=== PATIENT | female | born 1950 | race Caucasian/White ===

== ENCOUNTER → 2017-01-27 | Outpatient (CLI) | payer OTHER, MEDICARE, SELFPAY | PROVIDERS: Visit Provider Family Medicine | DX: R30.0 Dysuria (principal) | CPT/HCPCS: 81001; 87086 ==

== ENCOUNTER → 2017-02-01 | Outpatient (POV) | payer OTHER, MEDICARE, SELFPAY | PROVIDERS: Family Provider Family Medicine; PCP Family Medicine; Visit Provider Internal Medicine | DX: C20 Malignant neoplasm of rectum (principal); C78.7 Secondary malignant neoplasm of liver and intrahepatic bile duct | CPT/HCPCS: 99213; 80053; 81001; 85025; 87086; 96413; 96415; 96417; J1642; J9035; J9263; Q0166 ==

== ENCOUNTER → 2017-02-09 08:47 | Outpatient (CLI) | payer OTHER, MEDICARE, SELFPAY ==
--- NOTE | 2017-02-09 | CT_ITS ---
CT chest w con HISTORY: Rectal cancer follow-up, evaluate for metastasis, follow-up pulmonary nodule ITS.REASON: HX OF RECTAL CANCER ON CHEMO-- USED PORT ORDERING PHYSICIAN: Racheal Berumen PATIENT AGE: 66 years TECHNIQUE: Helical acquisition obtained following the bolus administration of 75 mL of Isovue 370 followed by a saline bolus. Axial, sagittal, and coronal reformatted images are generated and reviewed. COMPARISON: 12/14/2016 FINDINGS: Mediport catheter is present from left subclavian approach. No mediastinal or hilar mass or adenopathy. There is minimal prominence of left atrial appendage. Normal heart size. Coronary artery calcifications are present. No obvious pericardial effusion. There are a few scattered fibrotic changes noted. Peripheral opacity in the right upper lobe posterior medially is unchanged at approximately 5 mm. Small 6 mm nodules present in the right lung base posterior medially with central lucency as previously described. A central lucency is somewhat more prominent compared to the previous exam. Minimal atelectatic changes are present in the right lung base posteriorly. There is a 3 mm nodular opacity in the right middle lobe not readily apparent on the previous study but may not be seen due to the slice orientation and the small size. No acute bony anomalies. No effusions or infiltrates. IMPRESSION: 1. No convincing evidence of thoracic metastasis. 2. Scattered small nodular opacities as described above warrant which is not readily apparent on the previous study in the right middle lobe 3 mm but may not been seen due to the small size and slice orientation. Continued follow-up recommended
[2017-02-09 09:05] LABS: Basophils % 0.2 % (0.1-2.0); Eosinophils # 0.1 K/mm3 (0.0-0.4); Eosinophils % 0.9 % (0.1-12.0); Hematocrit 40.1 % (37.0-47.0); Hemoglobin 13.1 g/dL (12.2-16.2); Lymphocytes # 0.6 K/mm3 (0.7-4.5); Lymphocytes % 6.2 K/mm3 (10-50); Mean Corpuscular HGB Conc 32.7 g/dL (31.8-35.4); Mean Corpuscular Hemoglobin 29.6 pg (27.0-31.2); Mean Corpuscular Volume 90.6 fl (81-99); Mean Platelet Volume 7.2 fl (7.4-10.4); Monocytes # 0.5 K/mm3 (0.1-1.0); Monocytes % 4.8 % (1.7-9.3); Neutrophils # 8.9 K/mm3 (1.8-7.8); Neutrophils % 87.9 % (37.0-80.0); Platelet Count 441 K/mm3 (142-424); Red Blood Count 4.43 M/mm3 (4.20-5.40); Red Cell Distribution Width 18.2 % (11.5-17.5); White Blood Count 10.1 K/mm3 (4.8-10.8)
[2017-02-09 09:08] LABS: MANUAL DIFFERENTIAL MANUAL DIFFERENTIAL (MANUAL DIFF)
--- NOTE | 2017-02-09 09:16 | CT_ITS ---
CT abdomen pelvis w con CLINICAL INDICATION: Rectal cancer, hepatic metastasis, follow-up ITS.REASON: RECTAL CANCER ON CHEMO ORDERING PHYSICIAN: Racheal Berumen PATIENT AGE: 66 years COMPARISON: None TECHNIQUE: Axial images obtained with sagittal and coronal reformats. PROCEDURE: Oral Contrast: Redicat IV Contrast: 75 mL's of Isovue-370 . FINDINGS: Hepatic metastasis are once again noted. The largest lesion involving segment 4 and 8 measures 7.2 x 6.1 x 5 cm previously measuring 8.2 x 6.9 x 6.2 cm. Smaller lesion in the posterior aspect of segment 8 measures 2.3 cm present measuring 2.7 cm. Node in lesions are evident. There is mild thickening of the gallbladder. The spleen is unremarkable. Left adrenal gland is enlarged at 2.2 x 1.7 cm not significantly changed. The right adrenal gland and pancreas have an unremarkable appearance. Left lower quadrant diverting colostomy noted. No intestinal obstruction or free air. There has been prior hysterectomy. There is moderate thickening of the perineal tissues which may be slightly more edematous compared to the previous exam. Please correlate with physical exam. There is mild cystocele noted in the pelvic floor. No acute bony anomalies IMPRESSION: 1. Hepatic metastasis which appear slightly smaller. 2. No change left adrenal mass. 3. Postsurgical changes from prior rectal surgery with some mild edema of the peroneal tissue slightly more prominent when compared to the previous exam.
[2017-02-09 09:18] LABS: Alanine Aminotransferase 14 U/L (12-78); Albumin Level 3.2 gm/dL (3.4-5.0); Albumin/Globulin Ratio 0.8 (1.1-1.8); Alkaline Phosphatase 113 U/L (46-116); Anion Gap 9.9 mEq/L (5-15); Aspartate Amino Transferase 12 U/L (15-37); Bilirubin,Total 0.2 mg/dL (0.2-1.0); Blood Urea Nitrogen 25 mg/dL (7-18); Calcium 9.1 mg/dL (8.5-10.1); Carbon Dioxide 29 mmol/L (21.0-32.0); Chloride 101 mmol/L (98-107); Creatinine,Serum 0.69 mg/dL (0.55-1.02); Estimated Glomerular Filt Rate > 60 ml/min (>60); GFR (African American) > 60 ML/MIN (>60); Globulin 3.8 gm/dl (1.3-3.2); Glucose 99 mg/dL (74-106); Sodium 137 mmol/L (136-145)
[2017-02-09 09:24] LABS: Potassium 2.9 mmoL/L (3.5-5.1)
[2017-02-09 09:34] LABS: Lymphocytes % 5 % (10-50); Monocytes % 5 % (2-9); Neutrophils % 86 % (42-76); Platelet Estimate Slight Increase; Total Cells Counted 100
--- NOTE | 2017-02-09 12:45 | HMH.ITSHM ---
METOPROLOL LISINOPRIL AMLODIPINE SYNTHROID TRAZODONE IRON
== END ==
PROVIDERS: Family Provider Family Medicine; PCP Family Medicine; Visit Provider Nurse Practitioner
DX: C20 Malignant neoplasm of rectum (principal); Z03.89 Encounter for observation for other suspected diseases and conditions ruled out
CPT/HCPCS: 36415; 71260; 74177; 80053; 85007; 85025; Q9967

== ENCOUNTER 2017-02-09 10:25 | Outpatient (CLI) | payer OTHER, MEDICARE, SELFPAY ==
--- NOTE | 2017-02-09 15:25 | PC.NURSE ---
6149-contacted dr. nelson concerning pt's labs. potassium level on bmp today was 2.9. pt reports no recent diarrhea other than today after taking contrast for ct. md prescribed potassium tabs 40 meq po to be taken bid. [facility] and informed pt to pick up man and to start taking. pt has appt to f/u on mon with md in clinic.
== END 2017-02-09 11:00 | disposition home or self-care (01) ==
LOC: INF 10:32
PROVIDERS: Visit Provider Internal Medicine
DX: C20 Malignant neoplasm of rectum (principal); Z45.2 Encounter for adjustment and management of vascular access device
CPT/HCPCS: J1642

== ENCOUNTER 2017-02-15 08:15 | Outpatient (CLI) | payer OTHER, MEDICARE, SELFPAY ==
[2017-02-15] VITALS (17 sets, daily range): BP systolic 108–159; BP diastolic 46–82; PULSE 49–58; RESP 18–20; TEMP 36.6; O2SAT 97–98; BMI 20.9; BMI 19.5
[2017-02-15 08:53] LABS: Microscopic, Urine URINE MICROSCOPIC (MICROSCOPIC)
[2017-02-15 09:03] LABS: Appearance,Urine CLEAR (Clear); Bilirubin,Urine Negative (Negative); Blood, Urine 1+ (Negative); Color,Urine STRAW (Yellow); Glucose,Urine (UA) Negative (Negative); Ketones,Urine Negative (Negative); Leukocyte Esterase,Urine TRACE (Negative); Nitrate,Urine Negative (Negative); PH,Urine 5.5 (5.0-8.5); Protein,Urine Negative (Negative); Urobilinogen,Urine 0.2 EU/dl (0.2)
[2017-02-15 09:08] LABS: Potassium 4.9 mmoL/L (3.5-5.1)
[2017-02-15 09:41] LABS: WBC,Urine Occasional #/hpf (0-3)
[2017-02-15 09:42] LABS: Bacteria,Urine Trace /lpf
== END 2017-02-15 15:45 | disposition home or self-care (01) ==
PROVIDERS: Family Provider Family Medicine; Visit Provider Internal Medicine
DX: Z51.11 Encounter for antineoplastic chemotherapy (principal); C20 Malignant neoplasm of rectum; C78.7 Secondary malignant neoplasm of liver and intrahepatic bile duct
CPT/HCPCS: 81001; 84132; 96413; 96415; 96417; J9035; J9263; Q0166

== ENCOUNTER 2017-03-01 08:49 | Outpatient (CLI) | payer OTHER, MEDICARE, SELFPAY ==
[2017-03-01] VITALS (18 sets, daily range): BP systolic 136–165; BP diastolic 62–81; PULSE 48–51; RESP 16–20; TEMP 36.6; O2SAT 98–99; BMI 19.5
[2017-03-01 09:24] LABS: Microscopic, Urine URINE MICROSCOPIC (MICROSCOPIC)
[2017-03-01 09:25] LABS: Basophils # 0.1 K/mm3 (0-0.2); Eosinophils # 0.1 K/mm3 (0.0-0.4); Eosinophils % 2.7 % (0.1-12.0); Hematocrit 40.4 % (37.0-47.0); Hemoglobin 13.1 g/dL (12.2-16.2); Lymphocytes # 0.7 K/mm3 (0.7-4.5); Lymphocytes % 13.5 K/mm3 (10-50); Mean Corpuscular HGB Conc 32.5 g/dL (31.8-35.4); Mean Corpuscular Hemoglobin 29.7 pg (27.0-31.2); Mean Corpuscular Volume 91.5 fl (81-99); Mean Platelet Volume 7.5 fl (7.4-10.4); Monocytes # 0.4 K/mm3 (0.1-1.0); Monocytes % 7.9 % (1.7-9.3); Neutrophils % 74.9 % (37.0-80.0); Platelet Count 298 K/mm3 (142-424); Red Blood Count 4.41 M/mm3 (4.20-5.40); Red Cell Distribution Width 17.1 % (11.5-17.5); White Blood Count 5.3 K/mm3 (4.8-10.8)
[2017-03-01 09:28] LABS: Appearance,Urine CLEAR (Clear); Bilirubin,Urine Negative (Negative); Blood, Urine TRACE-I (Negative); Color,Urine YELLOW (Yellow); Glucose,Urine (UA) Negative (Negative); Ketones,Urine Negative (Negative); Leukocyte Esterase,Urine TRACE (Negative); Nitrate,Urine Negative (Negative); Protein,Urine Negative (Negative); Specific Gravity, Urine 1.015 (1.005-1.030); Urobilinogen,Urine 0.2 EU/dl (0.2)
[2017-03-01 09:37] LABS: Alanine Aminotransferase 24 U/L (12-78); Albumin Level 3.2 gm/dL (3.4-5.0); Albumin/Globulin Ratio 0.8 (1.1-1.8); Alkaline Phosphatase 118 U/L (46-116); Anion Gap 14.1 mEq/L (5-15); Aspartate Amino Transferase 24 U/L (15-37); Bilirubin,Total 0.2 mg/dL (0.2-1.0); Blood Urea Nitrogen 9 mg/dL (7-18); Calcium 8.9 mg/dL (8.5-10.1); Carbon Dioxide 24 mmol/L (21.0-32.0); Chloride 100 mmol/L (98-107); Creatinine Clearance Estimated 42 mL/min (0-300); Creatinine,Serum 0.76 mg/dL (0.55-1.02); Estimated Glomerular Filt Rate 76 ml/min (>60); GFR (African American) 92 ML/MIN (>60); Glucose 111 mg/dL (74-106); Potassium 5.1 mmoL/L (3.5-5.1); Sodium 133 mmol/L (136-145); Total Protein,Serum 7.2 gm/dL (6.4-8.2)
[2017-03-01 09:56] LABS: RBC,Urine Occasional #/hpf (0-3); WBC,Urine Occasional #/hpf (0-3)
[2017-03-01 09:57] LABS: Bacteria,Urine 2+ /lpf; Mucus,Urine 1+ /lpf; Squamous Epithelial Cell,Urine 20-50 #/hpf (0-5)
== END 2017-03-01 15:15 | disposition home or self-care (01) ==
LOC: INF 09:21
PROVIDERS: Family Provider Family Medicine; Visit Provider Internal Medicine
DX: C20 Malignant neoplasm of rectum (principal); Z51.11 Encounter for antineoplastic chemotherapy
CPT/HCPCS: 80053; 81001; 85025; 87086; 96413; 96415; 96417; J9035; J9263; Q0166

== ENCOUNTER 2017-03-13 08:17 | Outpatient (CLI) | payer OTHER, MEDICARE, SELFPAY ==
[2017-03-13] VITALS (21 sets, daily range): BP systolic 138–177; BP diastolic 67–94; PULSE 49–59; RESP 16–18; TEMP 36.5; O2SAT 100; BMI 20.3
[2017-03-13 08:45] LABS: Microscopic, Urine URINE MICROSCOPIC (MICROSCOPIC)
[2017-03-13 08:49] LABS: Basophils % 0.1 % (0.1-2.0); Eosinophils # 0.1 K/mm3 (0.0-0.4); Eosinophils % 0.6 % (0.1-12.0); Hemoglobin 12.9 g/dL (12.2-16.2); Lymphocytes # 0.5 K/mm3 (0.7-4.5); Lymphocytes % 5.2 K/mm3 (10-50); Mean Corpuscular HGB Conc 31.6 g/dL (31.8-35.4); Mean Corpuscular Hemoglobin 29.2 pg (27.0-31.2); Mean Corpuscular Volume 92.4 fl (81-99); Mean Platelet Volume 7.8 fl (7.4-10.4); Monocytes # 0.4 K/mm3 (0.1-1.0); Monocytes % 3.7 % (1.7-9.3); Neutrophils # 8.6 K/mm3 (1.8-7.8); Neutrophils % 90.5 % (37.0-80.0); Platelet Count 311 K/mm3 (142-424); Red Blood Count 4.43 M/mm3 (4.20-5.40); Red Cell Distribution Width 17.2 % (11.5-17.5); White Blood Count 9.5 K/mm3 (4.8-10.8)
[2017-03-13 08:50] LABS: Appearance,Urine SL CLOUDY (Clear); Bilirubin,Urine Negative (Negative); Blood, Urine TRACE-I (Negative); Color,Urine YELLOW (Yellow); Glucose,Urine (UA) Negative (Negative); Ketones,Urine Negative (Negative); Leukocyte Esterase,Urine Negative (Negative); MANUAL DIFFERENTIAL MANUAL DIFFERENTIAL (MANUAL DIFF); Nitrate,Urine Negative (Negative); Protein,Urine 1+ (Negative); Specific Gravity, Urine >= 1.030 (1.005-1.030); Urobilinogen,Urine 0.2 EU/dl (0.2)
[2017-03-13 08:59] LABS: Alanine Aminotransferase 20 U/L (12-78); Albumin Level 3.2 gm/dL (3.4-5.0); Albumin/Globulin Ratio 0.9 (1.1-1.8); Alkaline Phosphatase 110 U/L (46-116); Aspartate Amino Transferase 12 U/L (15-37); Bilirubin,Total 0.1 mg/dL (0.2-1.0); Blood Urea Nitrogen 16 mg/dL (7-18); Calcium 8.8 mg/dL (8.5-10.1); Carbon Dioxide 23 mmol/L (21.0-32.0); Chloride 100 mmol/L (98-107); Creatinine Clearance Estimated 44 mL/min (0-300); Estimated Glomerular Filt Rate 72 ml/min (>60); GFR (African American) 87 ML/MIN (>60); Globulin 3.7 gm/dl (1.3-3.2); Glucose 153 mg/dL (74-106); Sodium 133 mmol/L (136-145); Total Protein,Serum 6.9 gm/dL (6.4-8.2)
[2017-03-13 09:05] LABS: Bacteria,Urine 2+ /lpf; Hyaline Casts,Urine Occasional #/lpf (0); RBC,Urine Occasional #/hpf (0-3)
[2017-03-13 09:07] LABS: Lymphocytes % 5 % (10-50); Monocytes % 2 % (2-9); Neutrophils % 92 % (42-76); Platelet Estimate Normal; Total Cells Counted 100
[2017-03-13 09:09] LABS: RBC Morphology Normal
== END 2017-03-13 15:40 | disposition home or self-care (01) ==
PROVIDERS: Family Provider Family Medicine; PCP Family Medicine; Visit Provider Internal Medicine
DX: Z51.11 Encounter for antineoplastic chemotherapy (principal); C20 Malignant neoplasm of rectum; C78.7 Secondary malignant neoplasm of liver and intrahepatic bile duct
CPT/HCPCS: 80053; 81001; 85007; 85025; 87086; 87088; 87186; 96413; 96415; 96417; J9035; J9263; Q0166

== ENCOUNTER 2017-03-21 17:38 | Inpatient (IN) | payer OTHER, MEDICARE, SELFPAY ==
[2017-03-21 18:15] VITALS: BP 152/69; PULSE 76; RESP 20; TEMP 38.2; O2SAT 98; BMI 19.7
--- NOTE | 2017-03-21 18:26 | XR_ITS ---
XR chest 2V HISTORY: ITS.REASON: cough, congestion, fever ORDERING PHYSICIAN: Consuelo Willingham MD PATIENT AGE: 66 years COMPARISON: 12/21/2016 FINDINGS: The cardiomediastinal silhouette and pulmonary vascularity are within normal limits. Mediport catheter is present in the left subclavian approach. There are chronic changes with coarsening of the bronchovascular markings. No lobar consolidation or collapse. There is a faint opacity overlying the left lower lung zone at 15 mm posterolaterally to summation density from overlying rib or even nipple shadow. Follow-up suggested in this patient with history of rectal cancer IMPRESSION: 1. No change with no acute finding. 2. Opacity left lower lobe possibly due to summation/nipple artifact. Recommend follow-up
--- NOTE | 2017-03-21 19:19 | PC.NURSE ---
shift change report given to Loli
--- NOTE | 2017-03-21 19:27 | HMH.EDSOB ---
ED Disposition Clinical Impression: Right lower lobe pneumonia, Rectal cancer metastasized to liver, Tobacco use disorder Disposition: Still a Patient Condition on Discharge: Good Referrals: Awais Schmidt MD [Primary Care Provider] - - Critical Care Critical Care Time: No Attestation: On 03/21/17, the high probability of a clinically significant, sudden or life threatening deterioration of the following system(s) required my full and direct attention, intervention and personal management. The time I documented below is in addition to time spent performing reported procedures but includes the following listed in this critical care notation. Medical Decision Making - Medical Records Medical records reviewed: Yes: I reviewed the patient's medical records. Vital Signs: 03/21/17 18:15 Temperature 100.8 F H Temperature Source Oral Pulse Rate [Right Brachial] 76 Respiratory Rate 20 Blood Pressure [Right Arm] 152/69 Blood Pressure Mean [Right Arm] 96 Blood Pressure Source [Right Arm] Automatic Cuff Blood Pressure Position [Right Arm] Sitting 02 Sat by Pulse Oximetry 98 Oxygen Delivery Method Room Air Orders (Tests/Meds): ED MEDICATIONS Generic Name Dose Route Start Last Admin Trade Name Freq PRN Reason Stop Dose Admin Azithromycin 500 mg/ Sodium 250 mls @ 250 mls/hr 03/21/17 19:30 Chloride IV 04/04/17 19:29 Q24H BROOKE Protocol Ceftriaxone Sodium 1 gm/ 50 mls @ 100 mls/hr 03/21/17 19:30 Sodium Chloride IV 04/04/17 19:29 Q24H BROOKE ORDERS Category Date Time Status Chest XR 2 view (NOT portable) [XR chest 2V] Stat Exams 03/21/17 18:26 Taken Complete Blood Count Auto Diff Stat Lab 03/21/17 19:25 Ordered Comprehensive Metabolic Panel Stat Lab 03/21/17 19:25 Ordered Lactic Acid Stat Lab 03/21/17 19:25 Ordered Rapid Influenza A&B Antigens Stat Lab 03/21/17 19:13 Received Blood Culture Stat Micro 03/21/17 19:25 Ordered Sputum Culture & Gram Stain Stat Micro 03/21/17 19:26 Ordered - Radiology Data #1 Image(s): Chest Image Reviewed: Yes I reviewed the patient's radiology image Preliminary Findings: Abnormal Right lower lobe infiltrate - Jayjay Inquiry Pt receiving controlled substance: No Jayjay was queried for this patient: No Medical Decision Making Narrative: I contacted Dr. Lu was control room tender for Dr. Schmidt accepted the patient for admission for IV abx. Resp/SOB HPI - General Chief Complaint: Fever Stated Complaint: Chest Congestion, Cough, Fever Mode of Arrival: Ambulatory Limitations: No Limitations Description of Symptoms (Recalled from ER Triage Doc. by RN): Pt reports cough x1 week, fever began today - History of Present Illness 66 years old white female smoker with metastatic rectal carcinoma. Lat Chemotherapy was a week. He has been in progressive shortness of breath productive cough of yellow-green material and fever since then. She presented to the ED concerned about pneumonia. MD Complaint: shortness of breath, cough Onset (ago): week(s) (1 week.) Severity: moderate Consistency/Duration: constant Relieving factors: nothing Exacerbating factors: exertion Known history of: COPD Associated symptoms: fever, cough, sputum production Treatment prior to arrival: none - Related Data Home oxygen amount: none Home Medications Medication Instructions Recorded Confirmed amlodipine 5 mg tablet 5 mg PO QDAY 02/15/17 03/21/17 levothyroxine 75 mcg capsule 75 mcg PO DAILY 02/15/17 03/21/17 lisinopril 20 mg tablet 20 mg PO QDAY 02/15/17 03/21/17 metoprolol tartrate 50 mg tablet 50 mg PO QDAY 02/15/17 03/21/17 potassium chloride ER 20 mEq 20 meq PO DAILY tab 02/15/17 03/21/17 tablet,extended release(part/cryst) Omeprazole [Omeprazole 20mg 20 mg PO DAILY 03/21/17 03/21/17 Capsule] Trazodone HCl 50 mg PO HS 03/21/17 03/21/17 Allergies Allergy/AdvReac Type Severity Reaction Status Date / Time Sulfa (Sulfo
--- NOTE | 2017-03-21 19:31 | ED_ITS ---
ED Disposition Clinical Impression: Right lower lobe pneumonia, Rectal cancer metastasized to liver, Tobacco use disorder Disposition: Still a Patient Condition on Discharge: Good Referrals: Awais Schmidt MD [Primary Care Provider] - - Critical Care Critical Care Time: No Attestation: On 03/21/17, the high probability of a clinically significant, sudden or life threatening deterioration of the following system(s) required my full and direct attention, intervention and personal management. The time I documented below is in addition to time spent performing reported procedures but includes the following listed in this critical care notation. Medical Decision Making - Medical Records Medical records reviewed: Yes: I reviewed the patient's medical records. Vital Signs: 03/21/17 18:15 Temperature 100.8 F H Temperature Source Oral Pulse Rate [Right Brachial] 76 Respiratory Rate 20 Blood Pressure [Right Arm] 152/69 Blood Pressure Mean [Right Arm] 96 Blood Pressure Source [Right Arm] Automatic Cuff Blood Pressure Position [Right Arm] Sitting 02 Sat by Pulse Oximetry 98 Oxygen Delivery Method Room Air Orders (Tests/Meds): ED MEDICATIONS Generic Name Dose Route Start Last Admin Trade Name Freq PRN Reason Stop Dose Admin Azithromycin 500 mg/ Sodium 250 mls @ 250 mls/hr 03/21/17 19:30 Chloride IV 04/04/17 19:29 Q24H BROOKE Protocol Ceftriaxone Sodium 1 gm/ 50 mls @ 100 mls/hr 03/21/17 19:30 Sodium Chloride IV 04/04/17 19:29 Q24H BROOKE ORDERS Category Date Time Status Chest XR 2 view (NOT portable) [XR chest 2V] Stat Exams 03/21/17 18:26 Taken Complete Blood Count Auto Diff Stat Lab 03/21/17 19:25 Ordered Comprehensive Metabolic Panel Stat Lab 03/21/17 19:25 Ordered Lactic Acid Stat Lab 03/21/17 19:25 Ordered Rapid Influenza A&B Antigens Stat Lab 03/21/17 19:13 Received Blood Culture Stat Micro 03/21/17 19:25 Ordered Sputum Culture & Gram Stain Stat Micro 03/21/17 19:26 Ordered - Radiology Data #1 Image(s): Chest Image Reviewed: Yes I reviewed the patient's radiology image Preliminary Findings: Abnormal Right lower lobe infiltrate - Jayjay Inquiry Pt receiving controlled substance: No Jayjay was queried for this patient: No Medical Decision Making Narrative: I contacted Dr. Lu was sewage reticulation drafting officer for Dr. Schmidt accepted the patient for admission for IV abx. Resp/SOB HPI - General Chief Complaint: Fever Stated Complaint: Chest Congestion, Cough, Fever Mode of Arrival: Ambulatory Limitations: No Limitations Description of Symptoms (Recalled from ER Triage Doc. by RN): Pt reports cough x1 week, fever began today - History of Present Illness 66 years old white female smoker with metastatic rectal carcinoma. Lat Chemotherapy was a week. He has been in progressive shortness of breath productive cough of yellow-green material and fever since then. She presented to the ED concerned about pneumonia. MD Complaint: shortness of breath, cough Onset (ago): week(s) (1 week.) Severity: moderate Consistency/Duration: constant Relieving factors: nothing Exacerbating factors: exertion Known history of: COPD Associated symptoms: fever, cough, sputum production Treatment prior to arrival: none - Rel
[2017-03-21 20:16] VITALS: PULSE 78
[2017-03-21 20:17] VITALS: PULSE 81
[2017-03-21 20:19] LABS: Basophils % 0.1 % (0.1-2.0); Eosinophils % 0.1 % (0.1-12.0); Hematocrit 37.5 % (37.0-47.0); Hemoglobin 12.5 g/dL (12.2-16.2); Lymphocytes # 0.5 K/mm3 (0.7-4.5); Mean Corpuscular HGB Conc 33.3 g/dL (31.8-35.4); Mean Corpuscular Hemoglobin 29.6 pg (27.0-31.2); Mean Corpuscular Volume 89.1 fl (81-99); Monocytes # 0.7 K/mm3 (0.1-1.0); Monocytes % 6.2 % (1.7-9.3); Neutrophils # 10.3 K/mm3 (1.8-7.8); Neutrophils % 89.7 % (37.0-80.0); Platelet Count 247 K/mm3 (142-424); Red Blood Count 4.21 M/mm3 (4.20-5.40); Red Cell Distribution Width 17.3 % (11.5-17.5); White Blood Count 11.4 K/mm3 (4.8-10.8)
[2017-03-21 20:28] LABS: MANUAL DIFFERENTIAL MANUAL DIFFERENTIAL (MANUAL DIFF)
[2017-03-21 20:29] LABS: Magnesium 1.5 mg/dL (1.4-2.2)
[2017-03-21 20:34] LABS: Alanine Aminotransferase 20 U/L (12-78); Albumin Level 2.9 gm/dL (3.4-5.0); Albumin/Globulin Ratio 0.6 (1.1-1.8); Alkaline Phosphatase 110 U/L (46-116); Anion Gap 14.7 mEq/L (5-15); Aspartate Amino Transferase 17 U/L (15-37); Bilirubin,Total 0.4 mg/dL (0.2-1.0); Blood Urea Nitrogen 10 mg/dL (7-18); Calcium 8.8 mg/dL (8.5-10.1); Carbon Dioxide 23 mmol/L (21.0-32.0); Chloride 95 mmol/L (98-107); Creatinine Clearance Estimated 43 mL/min (0-300); Creatinine,Serum 0.77 mg/dL (0.55-1.02); Estimated Glomerular Filt Rate 75 ml/min (>60); GFR (African American) 91 ML/MIN (>60); Globulin 4.5 gm/dl (1.3-3.2); Glucose 114 mg/dL (74-106); Potassium 3.7 mmoL/L (3.5-5.1); Sodium 129 mmol/L (136-145); Total Protein,Serum 7.4 gm/dL (6.4-8.2)
[2017-03-21 21:41] VITALS: BP 135/66; PULSE 82; RESP 16; TEMP 38.1; O2SAT 97
[2017-03-21 21:48] LABS: Anisocytosis 1+; Lymphocytes % 5 % (10-50); Monocytes % 6 % (2-9); Neutrophils % 89 % (42-76); Platelet Estimate Normal; Poikilocytosis 1+; Total Cells Counted 100
[2017-03-21 22:06] VITALS: BP 106/61; PULSE 78; RESP 22; TEMP 37.6; O2SAT 97; BMI 19.5
[2017-03-21 22:20] VITALS: O2SAT 97
--- NOTE | 2017-03-21 22:24 | PC.NURSE ---
PATIENT RECENTLY ADMITTED TO FLOOR AND IS REQUESTING MEDICATION FOR NAUSEA AND RIB PAIN. SPOKE WITH DR. WOODS. ORDER OBTAINED: ZOFRAN 4 MG SL EVERY 6 HOURS PRN AND IBUPROFEN 400 MG EVERY 6 HOURS PRN.
[2017-03-22] VITALS (12 sets, daily range): BP systolic 110–172; BP diastolic 59–68; PULSE 53–83; RESP 16–20; TEMP 36.3–38.4; O2SAT 93–100; BMI 19.7
--- NOTE | 2017-03-22 04:13 | PC.NURSE ---
PATIENT WAS ADMITTED THIS SHIFT. SHE C/O NAUSEA AND RIB PAIN X1; PRN ZOFRAN AND IBUPROFEN WAS GIVEN AND WAS EFFECTIVE. PATIENT DID HAVE A FEVER OF 101 AT ONE POINT; HOWEVER, PATIENT'S ROOM WAS VERY WARM AND SEVERAL BLANKETS WERE ON HER. IBUPROFEN HAD RECENTLY BEEN GIVEN PRIOR TO THE FEVER, SO HER ROOM TEMP WAS DECREASED, EXTRA BLANKETS WERE REMOVED AND A COOL WASH CLOTH WAS APPLIED TO HER FOREHEAD, AFTER WHICH HER TEMP DECREASED TO 98.9 ON RECHECK. PATIENT HAS SLEPT WELL WITH NO SOA, DISTRESS, OR ANY OTHER PROBLEMS NOTED. PATIENT CURRENTLY IN BED SLEEPING. VSS. WILL CONTINUE TO MONITOR. SAFETY MEASURES IN PLACE, CALL LIGHT IN REACH.
[2017-03-22 07:00] LABS: Basophils % 0.2 % (0.1-2.0); Eosinophils % 0.4 % (0.1-12.0); Hematocrit 35.4 % (37.0-47.0); Hemoglobin 11.5 g/dL (12.2-16.2); Lymphocytes # 0.7 K/mm3 (0.7-4.5); Lymphocytes % 7.9 K/mm3 (10-50); Mean Corpuscular HGB Conc 32.5 g/dL (31.8-35.4); Mean Corpuscular Hemoglobin 29.4 pg (27.0-31.2); Mean Corpuscular Volume 90.4 fl (81-99); Mean Platelet Volume 7.8 fl (7.4-10.4); Monocytes # 0.5 K/mm3 (0.1-1.0); Monocytes % 5.6 % (1.7-9.3); Neutrophils # 7.8 K/mm3 (1.8-7.8); Neutrophils % 85.9 % (37.0-80.0); Platelet Count 225 K/mm3 (142-424); Red Blood Count 3.92 M/mm3 (4.20-5.40); Red Cell Distribution Width 17.1 % (11.5-17.5); White Blood Count 9.1 K/mm3 (4.8-10.8)
[2017-03-22 07:02] LABS: MANUAL DIFFERENTIAL MANUAL DIFFERENTIAL (MANUAL DIFF)
[2017-03-22 07:12] LABS: Anion Gap 12.6 mEq/L (5-15); Blood Urea Nitrogen 10 mg/dL (7-18); Carbon Dioxide 25 mmol/L (21.0-32.0); Chloride 100 mmol/L (98-107); Creatinine Clearance Estimated 42 mL/min (0-300); Creatinine,Serum 0.85 mg/dL (0.55-1.02); Estimated Glomerular Filt Rate 67 ml/min (>60); GFR (African American) 81 ML/MIN (>60); Glucose 105 mg/dL (74-106); Potassium 3.6 mmoL/L (3.5-5.1); Sodium 134 mmol/L (136-145)
--- NOTE | 2017-03-22 07:19 | HMH.PHAVTE ---
[facility] Pharmacy VTE Monitoring - Patient Demographics Admission date: 03/21/17 Report Date: 03/22/17 Time: 07:19 Allergies/Adverse Reactions: Patient Allergies Sulfa (Sulfonamide Antibiotics) Allergy (Intermediate, Verified 03/21/17 18:23) I-HIVES penicillin V Allergy (Unknown, Verified 03/21/17 18:23) KIDNEY INFECTION Height: 1.57 m Weight: 48.563 kg Patient Problems: Current Active Problems Right lower lobe pneumonia (Acute) Rectal cancer metastasized to liver (Acute) Tobacco use disorder (Acute) - VTE Risk Labs: VTE Related Lab Results Hgb 11.5 g/dL (12.2-16.2) L 03/22/17 06:30 Hct 35.4 % (37.0-47.0) L 03/22/17 06:30 Plt Count 225 K/mm3 (142-424) 03/22/17 06:30 BUN 10 mg/dL (7-18) 03/22/17 06:30 Creatinine 0.85 mg/dL (0.55-1.02) 03/22/17 06:30 Estimated Creat Clear 42 mL/min (0-300) 03/22/17 06:30 Was VTE Risk Assessment Performed: Yes VTE Score: 7 VTE Risk Level: Moderate Risk Clinical Trial Participant: No - Prophylaxis VTE Prophylaxis Ordered?: Yes Types of VTE Prophylaxis: TEDS Knee High
--- NOTE | 2017-03-22 07:50 | HMH.HP ---
*Admission Date: 03/21/17 <Vikki Altamirano 03/22/17 08:30> *Chief complaint: cough and fever <Vikki Altamirano 03/22/17 08:30> *History of present illness: Ms. Delarosa is a 66-year-old female with a history of metastatic rectal cancer carcinoma metastasized to the lung and liver, thyroid disease, hypertension, and tobacco use disorder. Patient presented to the emergency room after experiencing a cough for about 1 week and nausea ?1 week; she reports eating minimally but was able to continue to drink fluids. She did not vomit. 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 She has been receiving receiving chemotherapy with her last treatment being 10 days ago. She has also had 27 radiation treatments ;she has 1 additional chemotherapy remaining. In the emergency room with evaluation she was felt to have a pneumonia and was admitted for further evaluation and treatment. This A.m. she is filling better. Nausea is gone. She continues with a cough which is sometimes productive. She denies pain. She is sitting up in the bed eating her breakfast. <Vikki Altamirano 03/22/17 08:30> [facility] History Medical History: Reports:: Cancer (liver and rectal), Chronic Obstructive Pulmonary Disease (COPD), Hypertension, Lung Disease Denies:: Anxiety, Depression, Diabetes Mellitus Type 1, Diabetes Mellitus Type 2, MRSA <Vikki Altamirano 03/22/17 08:30> Other Medical History: Reports: Anemia, Arthritis, Chemotherapy (last dose was on 03/15/17), Hypothyroidism, Liver Disease, Radiation Therapy (completed in november), Thyroid Disease (hypothyroid) <AltamiranoVikki 03/22/17 08:30> Other Surgeries: Yes: Appendectomy, Cancer Surgery, Colon Resection, Colostomy, Hysterectomy-Total, Tubal Ligation, Other <AltamiranoVikki 03/22/17 08:30> Amputation: No <AdarshVikki 03/22/17 08:30> Fractures: No <Altamirano,Vikki 03/22/17 08:30> - *Social History Educational Level: Attended High School <AdarshVikki 03/22/17 08:30> Smoking Status: Current every day smoker <Vikki Altamirano 03/22/17 08:30> Tobacco Type: cigarettes <Vikki Altamirano 03/22/17 08:30> # Packs/Day (cigarettes): 1 <Vikki Altamirano 03/22/17 08:30> #Yrs smoked (if former smoker): 50 <Vikki Altamirano 03/22/17 08:30> Alcohol Intake: never <AdarshVikki 03/22/17 08:30> Substance Use Type: denies use <Vikki Altamirano 03/22/17 08:30> Occupational Status: employed <AdarshVikki 03/22/17 08:30> Housing: house <AdarshVikki 03/22/17 08:30> Household Members: children <Vikki Altamirano 03/22/17 08:30> - Psychiatric History Expresses thoughts of harming self/others: None <AltamiranoVikki 03/22/17 08:30> Suicide Plan Description: No Plan <Vikki Altamirano 03/22/17 08:30> Pschychiatric History:: Denies:: Anxiety, Attention Deficit Disorder, Bipolar Disorder, Depression, Eating Disorder, Post Traumatic Stress Disorder, Suicide Attempt, Psychiatric Treatment, Schizophrenia <Vikki Altamirano 03/22/17 08:30> *Family Hx:: Cancer, Diabetes, Heart Attack, Hyperlipidemia, Hypertension, Stroke, Tuberculosis <AdarshVikki 03/22/17 08:30> Comment: myeloid sarcoma <AltamiranoVikki 03/22/17 08:30> LEGAL E[employer]ITY [employer]ER history: Non-contributory <AdarshVikki 03/22/17 08:30> Review of Systems - Constitutional Reports fever(s), Denies body ache(s), Denies headache(s) <AltamiranoVikki 03/22/17 08:30> - ENT Reports sore throat, Denies dizziness, Denies headache(s) <AltamiranoVikki 03/22/17 08:30> - *Cardiovascular Reports shortness of breath, Denies chest pain, Denies irregular heart rhythm, Denies leg swelling <Altamirano,Vikki 03/22/17 08:30> - *Respiratory Reports cough, Reports shortness of breath, Reports pain with cough, Denies coughing up blood <Vikki Altamirano - 03/22/17 08:30> - *Gastrointestinal Denies abdominal pain, Denies change in bowel habits, Denies constipa
--- NOTE | 2017-03-22 07:57 | P.HP_ITS ---
*Admission Date: 03/21/17 <Vikki Altamirano 03/22/17 08:30> *Chief complaint: cough and fever <Vikki Altamirano 03/22/17 08:30> *History of present illness: Ms. Delarosa is a 66-year-old female with a history of metastatic rectal cancer carcinoma metastasized to the lung and liver, thyroid disease, hypertension, and tobacco use disorder. Patient presented to the emergency room after experiencing a cough for about 1 week and nausea ?1 week; she reports eating minimally but was able to continue to drink fluids. She did not vomit. 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 She has been receiving receiving chemotherapy with her last treatment being 10 days ago. She has also had 27 radiation treatments ;she has 1 additional chemotherapy remaining. In the emergency room with evaluation she was felt to have a pneumonia and was admitted for further evaluation and treatment. This A.m. she is filling better. Nausea is gone. She continues with a cough which is sometimes productive. She denies pain. She is sitting up in the bed eating her breakfast. <Vikki Altamirano 03/22/17 08:30> [facility] History Medical History: Reports:: Cancer (liver and rectal), Chronic Obstructive Pulmonary Disease (COPD), Hypertension, Lung Disease Denies:: Anxiety, Depression, Diabetes Mellitus Type 1, Diabetes Mellitus Type 2, MRSA <Vikki Altamirano 03/22/17 08:30> Other Medical History: Reports: Anemia, Arthritis, Chemotherapy (last dose was on 03/15/17), Hypothyroidism, Liver Disease, Radiation Therapy (completed in november), Thyroid Disease (hypothyroid) <AltamiranoVikki 03/22/17 08:30> Other Surgeries: Yes: Appendectomy, Cancer Surgery, Colon Resection, Colostomy, Hysterectomy-Total, Tubal Ligation, Other <AltamiranoVikki 03/22/17 08:30> Amputation: No <AdarshVikki 03/22/17 08:30> Fractures: No <Altamirano,Vikki 03/22/17 08:30> - *Social History Educational Level: Attended High School <AdarshVikki 03/22/17 08:30> Smoking Status: Current every day smoker <Vikki Altamirano 03/22/17 08:30> Tobacco Type: cigarettes <Vikki Altamirano 03/22/17 08:30> # Packs/Day (cigarettes): 1 <Vikki Altamirano 03/22/17 08:30> #Yrs smoked (if former smoker): 50 <Vikki Altamirano 03/22/17 08:30> Alcohol Intake: never <Vikki Altamirano 03/22/17 08:30> Substance Use Type: denies use <Vikki Altamirano 03/22/17 08:30> Occupational Status: employed <AdarshVikki 03/22/17 08:30> Housing: house <AdarshVikki 03/22/17 08:30> Household Members: children <Vikki Altamirano 03/22/17 08:30> - Psychiatric History Expresses thoughts of harming self/others: None <AdarshVikki 03/22/17 08: 30> Suicide Plan Description: No Plan <Vikki Altamirano 03/22/17 08:30> Pschychiatric History:: Denies:: Anxiety, Attention Deficit Disorder, Bipolar Disorder, Depression, Eating Disorder, Post Traumatic Stress Disorder, Suicide Attempt, Psychiatric Treatment, Schizophrenia <Vikki Altamirano 03/22/17 08:30> *Family Hx:: Cancer, Diabetes, Heart Attack, Hyperlipidemia, Hypertension, Stroke, Tuberculosis <Vikki Altamirano 03/22/17 08:30> Comment: myeloid sarcoma <AltamiranoVikki 03/22/17 08:30> [employer] history: Non-contributory <Vikki Altamirano 03/22/17 08:30> Review of Systems - Constitutional Reports fever(s), Denies body ache(s), Denies headache(s) <AltamiranoVikki 08:30> - ENT Reports sore throat, Denies dizziness, Denies headache(s) <AltamiranoVikki 08:30> - *Cardiovascular Reports shortness of breath, Denies chest pain, Denies irregular heart rhythm, Denies
--- NOTE | 2017-03-22 09:06 | XR_ITS ---
XR chest 2V HISTORY: ITS.REASON: Cough, fever, metastatic rectal cancer ORDERING PHYSICIAN: Awais Schmidt MD PATIENT AGE: 66 years COMPARISON: 03/21/2017 FINDINGS: The cardiomediastinal silhouette and pulmonary vascularity are within normal limits. There is a vague nodular opacity once again noted in the left lower lung zone and also an area of patchy density in the right lung base. Patchy areas of infiltrate or developing pulmonary nodules are considered in this patient with history of rectal cancer. Left subclavian Mediport catheter remains in good position. IMPRESSION: Bilateral lower lobe opacities which could be due to areas of infiltrate or developing metastatic lesions. CT may be of further value in this patient with history of metastatic rectal cancer
[2017-03-22 09:39] LABS: Lymphocytes % 10 % (10-50); Monocytes % 3 % (2-9); Neutrophils % 85 % (42-76); Total Cells Counted 100
[2017-03-22 09:40] LABS: Platelet Estimate Slight Increase; RBC Morphology Normal
--- NOTE | 2017-03-22 10:27 | PC.NURSE ---
PATIENT REQUESTING TO HOLD OFF ON MORNING MEDS UNTIL FAMILY CAN COME IN WITH HER HOME MEDS
--- NOTE | 2017-03-22 15:10 | PC.NURSE ---
Report received from LEAH Pérez. Pt is in bed, call light within reach, no changes from earlier assessment. Pt has no complaints at this time, will continue to monitor.
--- NOTE | 2017-03-22 19:38 | PC.NURSE ---
Addendum entered by Fide Kasper RN 03/22/17 19:44: 1 teaspoon q6HR PRN for cough. Original Note: RN notified Brayan EDEN regarding patient request for cough medication. Per order Man with [facility]
[2017-03-23] VITALS (8 sets, daily range): BP systolic 125–152; BP diastolic 58–70; PULSE 59–72; RESP 18–20; TEMP 36.7–37; O2SAT 91–97
--- NOTE | 2017-03-23 03:19 | PC.NURSE ---
Patient resting well this shift. Received PRN Phenergan with Codeine x1 for cough. VS stable. Colostomy CDI cared for per patient. No new complaints. Will continue to monitor.
--- NOTE | 2017-03-23 07:25 | PC.NURSE ---
Received report from Rolando Kasper RN
--- NOTE | 2017-03-23 08:18 | HMH.ACPN2 ---
<Alison Salazar - Last Filed: 03/23/17 08:18> Internal Medicine - PN: Subj *Date: 03/23/17 *Time: 08:18 Interval history: Patient states she is feeling a little bit better today. She was still short of breath and wheezing. Her abdomen is sore from coughing. She was able to sleep off and on last night she did eat a small amount of breakfast this morning. Exam Vital signs and Labs for Last 24 Hours: Temp Pulse Resp BP Pulse Ox 98.2 F 66 20 125/63 94 L 03/23/17 07:38 03/23/17 07:38 03/23/17 07:38 03/23/17 07:38 03/23/17 07:38 Laboratory Results - last 24 hr 03/22/17 06:30: Total Counted 100, Neutrophils % (Manual) 85 H, Band Neutrophils % 2.0, Lymphocytes % (Manual) 10, Monocytes % (Manual) 3, Platelet Estimate Slight increase, RBC Morphology Normal I & O for Last 24 hours: Intake & Output 03/20/17 03/21/17 03/22/17 03/23/17 11:59 11:59 11:59 11:59 Intake Total 240 / 240 1884 / 1884 Output Total 300 / 300 300 / 300 Balance -60 / -60 1584 / 1584 Weight 107 lb 1 oz 107 lb 1.009 oz Radiology Reports for the Last 24 Hours: CXR Bilateral lower lobe opacities which could be due to areas of infiltrate or developing metastatic lesions. CT may be of further value in this patient with history of metastatic rectal cancer - Constitutional no acute distress - *Routine Respiratory Exam Present: rhonchi, wheezes. Absent: rales - *Routine Cardiovascular Exam Present: RRR - *Routine Abdominal Exam Present: soft, normoactive bowel sounds - *Routine Extremities Exam Absent: edema Assessment and Plan (1) Right lower lobe pneumonia Current visit: Yes Status: Acute Category: Medical Code(s): J18.1 - Lobar pneumonia, unspecified organism (2) Rectal cancer metastasized to liver Current visit: Yes Status: Acute Category: Medical Code(s): C20 - Malignant neoplasm of rectum; C78.7 - Secondary malignant neoplasm of liver and intrahepatic bile duct (3) Tobacco use disorder Current visit: Yes Status: Acute Category: Medical Code(s): F17.200 - Nicotine dependence, unspecified, uncomplicated (4) Hypothyroidism Current visit: Yes Status: Acute Category: Medical Code(s): E03.9 - Hypothyroidism, unspecified - Assessment and plan all Dx Assessment and Plan for all problems:: Still awaiting sputum cx results. Will continue abx. Will discuss getting a CT with Dr. Schmidt d/t CXR finding. <Awais Schmidt - Last Filed: 03/23/17 08:53> Internal Medicine - PN: Subj *Date: 03/23/17 *Time: 08:50 Exam Vital signs and Labs for Last 24 Hours: Temp Pulse Resp BP Pulse Ox 98.2 F 66 20 125/63 94 L 03/23/17 07:38 03/23/17 07:38 03/23/17 07:38 03/23/17 07:38 03/23/17 07:38 Laboratory Results - last 24 hr 03/22/17 06:30: Total Counted 100, Neutrophils % (Manual) 85 H, Band Neutrophils % 2.0, Lymphocytes % (Manual) 10, Monocytes % (Manual) 3, Platelet Estimate Slight increase, RBC Morphology Normal I & O for Last 24 hours: Intake & Output 03/20/17 03/21/17 03/22/17 03/23/17 11:59 11:59 11:59 11:59 Intake Total 240 / 240 1884 / 1884 Output Total 300 / 300 300 / 300 Balance -60 / -60 1584 / 1584 Weight 107 lb 1 oz 107 lb 1.009 oz Narrative: Vital Signs Temp Pulse Pulse Pulse Resp BP Pulse Ox 03/23/17 07:38 98.2 F 66 20 125/63 94 L 03/23/17 06:31 60 91 L 03/23/17 03:53 98.4 F 63 20 132/58 92 L 03/23/17 00:00 98.6 F 64 20 145/67 97 03/22/17 20:00 98.5 F 83 20 144/63 98 03/22/17 18:49 78 03/22/17 15:43 97.4 F L 74 18 132/68 96 03/22/17 13:36 69 03/22/17 12:00 97.3 F L 72 16 172/68 100 03/22/17 09:50 98 03/22/17 09:28 58 L Intake and Output 03/22/17 03/23/17 03/23/17 19:59 03:59 11:59 Intake Total 360 / 360 1524 / 1524 Output Total 300 / 300 Balance 60 / 60 1524 / 1524 Intake: Intake, Oral Amount 360 / 360
--- NOTE | 2017-03-23 08:22 | P.PN_ITS ---
<Alison Salazar - Last Filed: 03/23/17 08:18> Internal Medicine - PN: Subj *Date: 03/23/17 *Time: 08:18 Interval history: Patient states she is feeling a little bit better today. She was still short of breath and wheezing. Her abdomen is sore from coughing. She was able to sleep off and on last night she did eat a small amount of breakfast this morning. Exam Vital signs and Labs for Last 24 Hours: Temp Pulse Resp BP Pulse Ox 98.2 F 66 20 125/63 94 L 03/23/17 07:38 03/23/17 07:38 03/23/17 07:38 03/23/17 07:38 03/23/17 07:38 Laboratory Results - last 24 hr 03/22/17 06:30: Total Counted 100, Neutrophils % (Manual) 85 H, Band Neutrophils % 2.0, Lymphocytes % (Manual) 10, Monocytes % (Manual) 3, Platelet Estimate Slight increase, RBC Morphology Normal I & O for Last 24 hours: Intake & Output 03/20/17 03/21/17 03/22/17 03/23/17 11:59 11:59 11:59 11:59 Intake Total 240 / 240 1884 / 1884 Output Total 300 / 300 300 / 300 Balance -60 / -60 1584 / 1584 Weight 107 lb 1 oz 107 lb 1.009 oz Radiology Reports for the Last 24 Hours: CXR Bilateral lower lobe opacities which could be due to areas of infiltrate or developing metastatic lesions. CT may be of further value in this patient with history of metastatic rectal cancer - Constitutional no acute distress - *Routine Respiratory Exam Present: rhonchi, wheezes. Absent: rales - *Routine Cardiovascular Exam Present: RRR - *Routine Abdominal Exam Present: soft, normoactive bowel sounds - *Routine Extremities Exam Absent: edema Assessment and Plan (1) Right lower lobe pneumonia Current visit: Yes Status: Acute Category: Medical Code(s): J18.1 - Lobar pneumonia, unspecified organism (2) Rectal cancer metastasized to liver Current visit: Yes Status: Acute Category: Medical Code(s): C20 - Malignant neoplasm of rectum; C78.7 - Secondary malignant neoplasm of liver and intrahepatic bile duct (3) Tobacco use disorder Current visit: Yes Status: Acute Category: Medical Code(s): F17.200 - Nicotine dependence, unspecified, uncomplicated (4) Hypothyroidism Current visit: Yes Status: Acute Category: Medical Code(s): E03.9 - Hypothyroidism, unspecified - Assessment and plan all Dx Assessment and Plan for all problems:: Still awaiting sputum cx results. Will continue abx. Will discuss getting a CT with Dr. Schmidt d/t CXR finding. <Awais Schmidt - Last Filed: 03/23/17 08:53> Internal Medicine - PN: Subj *Date: 03/23/17 *Time: 08:50 Exam Vital signs and Labs for Last 24 Hours: Temp Pulse Resp BP Pulse Ox 98.2 F 66 20 125/63 94 L 03/23/17 07:38 03/23/17 07:38 03/23/17 07:38 03/23/17 07:38 03/23/17 07:38 Laboratory Results - last 24 hr 03/22/17 06:30: Total Counted 100, Neutrophils % (Manual) 85 H, Band Neutrophils % 2.0, Lymphocytes % (Manual) 10, Monocytes % (Manual) 3, Platelet Estimate Slight increase, RBC Morphology Normal I & O for Last 24 hours: Intake & Output 03/20/17 03/21/17 03/22/17 03/23/17 11:59 11:59 11:59 11:59 Intake Total 240 / 240 1884 / 1884 Output Total 300 / 300 300 / 300 Balance -60 / -60 1584 / 1584 Weight 107 lb 1 oz 107 lb 1.009 oz Narrative: Vital Signs Tem
--- NOTE | 2017-03-23 15:43 | PC.NURSE ---
Pt is a 66 year old female admitted to [facility] on 03/11/17 /c diagnosis of RLL PNA, Rectal CA with mets to liver, and hypothyroidism. Pt is A&Ox4. VSS. Afebrile. Heart rate reg. Lungs /c inspiratory wheezes and expiratory rhonchi throughout. Abd soft, nontender /c active BS x all quads. Colostomy noted to LLQ. Pt independent /c colostomy care. Pt denies difficulty /c urination. (R)AC IV infusing D5 1/2 NS /c 20meq KCl @ 50ml/hr /s difficulty. No s/s of infiltration/infection. Pt has refused IVELISSE hose. Will continue to monitor pt's status.
--- NOTE | 2017-03-23 18:59 | PC.NURSE ---
Report given to Heavenly Barakat RN
[2017-03-24] VITALS (8 sets, daily range): BP systolic 137–178; BP diastolic 67–76; PULSE 63–85; RESP 18–20; TEMP 36.7–37.2; O2SAT 90–96
--- NOTE | 2017-03-24 04:53 | PC.NURSE ---
PT HAS SLEPT INTERMITTENTLY. REQUESTED COUGH MED AT HS. DRY HACKY COUGH NOTED. RESPIRATIONS EVEN AND UNLABORED ON RA. NO COMPLAINTS OF SOB. ALERT AND ORIENTED TIMES 3. PLEASANT AND COOPERATIVE.
--- NOTE | 2017-03-24 08:22 | HMH.ACPN2 ---
<Alison Salazar - Last Filed: 03/24/17 08:22> Internal Medicine - PN: Subj *Date: 03/24/17 *Time: 08:22 Interval history: Patient states she feels slightly better today. She still has shortness of breath and horrible cough. She is unable to cough anything up. She is hurting in her chest and her abdomen from coughing so much. She rested off and on last night and ate a small amount of breakfast this morning. Exam Vital signs and Labs for Last 24 Hours: Temp Pulse Resp BP Pulse Ox 98.3 F 80 20 178/70 95 03/24/17 07:57 03/24/17 07:57 03/24/17 07:57 03/24/17 07:57 03/24/17 07:57 I & O for Last 24 hours: Intake & Output 03/21/17 03/22/17 03/23/17 03/24/17 11:59 11:59 11:59 11:59 Intake Total 240 / 240 1884 / 1884 2808 / 2808 Output Total 300 / 300 300 / 300 Balance -60 / -60 1584 / 1584 2808 / 2808 Weight 107 lb 1 oz 107 lb 1.009 oz - Constitutional no acute distress (coughing) - *Routine Respiratory Exam Present: rhonchi, wheezes - *Routine Cardiovascular Exam Present: RRR - *Routine Abdominal Exam Present: soft, normoactive bowel sounds. Absent: tenderness - *Routine Extremities Exam Absent: edema Assessment and Plan (1) Enterobacter cloacae pneumonia Current visit: Yes Status: Acute Category: Medical Code(s): J15.6 - Pneumonia due to other Gram-negative bacteria (2) Streptococcus pneumoniae pneumonia Current visit: Yes Status: Acute Category: Medical Code(s): J13 - Pneumonia due to Streptococcus pneumoniae (3) Bilateral pneumonia Current visit: Yes Status: Acute Qualifiers: Pneumonia type: due to unspecified organism Lung location: unspecified part of lung Qualified Code(s): J18.9 - Pneumonia, unspecified organism Category: Medical Code(s): J18.9 - Pneumonia, unspecified organism (4) COPD (chronic obstructive pulmonary disease) Current visit: Yes Status: Acute Category: Medical Code(s): J44.9 - Chronic obstructive pulmonary disease, unspecified (5) Rectal cancer metastasized to liver Current visit: Yes Status: Acute Category: Medical Code(s): C20 - Malignant neoplasm of rectum; C78.7 - Secondary malignant neoplasm of liver and intrahepatic bile duct (6) Tobacco use disorder Current visit: Yes Status: Acute Category: Medical Code(s): F17.200 - Nicotine dependence, unspecified, uncomplicated (7) Hypothyroidism Current visit: Yes Status: Acute Category: Medical Code(s): E03.9 - Hypothyroidism, unspecified (8) HTN (hypertension) Current visit: Yes Status: Acute Category: Medical Code(s): I10 - Essential (primary) hypertension - Assessment and plan all Dx Assessment and Plan for all problems:: Patient's sputum is positive for enterobacter and strep pneumoniae. Both are sensitive to levaquin. Will discuss changing patient's abx with Dr. Schmidt. <Awais Schmidt - Last Filed: 03/24/17 09:05> Internal Medicine - PN: Subj *Date: 03/24/17 *Time: 09:03 Exam Vital signs and Labs for Last 24 Hours: Temp Pulse Resp BP Pulse Ox 98.3 F 80 20 178/70 95 03/24/17 07:57 03/24/17 07:57 03/24/17 07:57 03/24/17 07:57 03/24/17 07:57 I & O for Last 24 hours: Intake & Output 03/21/17 03/22/17 03/23/17 03/24/17 11:59 11:59 11:59 11:59 Intake Total 240 / 240 1884 / 1884 2808 / 2808 Output Total 300 / 300 300 / 300 Balance -60 / -60 1584 / 1584 2808 / 2808 Weight 107 lb 1 oz 107 lb 1.009 oz Assessment and Plan (1) Enterobacter cloacae pneumonia Current visit: Yes Status: Acute Category: Medical Code(s): J15.6 - Pneumonia due to other Gram-negative bacteria (2) Streptococcus pneumoniae pneumonia Current visit: Yes Status: Acute Category: Medical Code(s): J13 - Pneumonia due to Streptococcus pneumoniae (3) Bilateral pneumonia Current visit: Yes Status: Acute Qualifiers: Pneumonia type: due to unspecified organism Lung lo
[2017-03-24 13:48] LABS: Basophils % 0.3 % (0.1-2.0); Eosinophils # 0.1 K/mm3 (0.0-0.4); Eosinophils % 1.5 % (0.1-12.0); Hematocrit 34.3 % (37.0-47.0); Hemoglobin 11.3 g/dL (12.2-16.2); Lymphocytes # 0.4 K/mm3 (0.7-4.5); Lymphocytes % 8.4 K/mm3 (10-50); Mean Corpuscular HGB Conc 32.9 g/dL (31.8-35.4); Mean Corpuscular Hemoglobin 29.2 pg (27.0-31.2); Mean Corpuscular Volume 88.7 fl (81-99); Mean Platelet Volume 8.1 fl (7.4-10.4); Monocytes # 0.3 K/mm3 (0.1-1.0); Monocytes % 6.6 % (1.7-9.3); Neutrophils # 4.1 K/mm3 (1.8-7.8); Neutrophils % 83.2 % (37.0-80.0); Platelet Count 250 K/mm3 (142-424); Red Blood Count 3.87 M/mm3 (4.20-5.40); White Blood Count 4.9 K/mm3 (4.8-10.8)
[2017-03-24 13:54] LABS: Anion Gap 13.1 mEq/L (5-15); Blood Urea Nitrogen 2 mg/dL (7-18); Carbon Dioxide 25 mmol/L (21.0-32.0); Chloride 100 mmol/L (98-107); Glucose 112 mg/dL (74-106); Potassium 3.1 mmoL/L (3.5-5.1); Sodium 135 mmol/L (136-145)
[2017-03-24 14:22] LABS: Creatinine Clearance Estimated 42 mL/min (0-300); Creatinine,Serum 0.67 mg/dL (0.55-1.02); Estimated Glomerular Filt Rate 88 ml/min (>60); GFR (African American) 107 ML/MIN (>60)
--- NOTE | 2017-03-24 14:40 | DIET.NUTRFU ---
Pt intake remains fair with a 56% PO avg and 75% at last recorded meal. Pt has been encouraged to write in menu requests or notify staff. Will continue to monitor and attempt to supplement diet if PO intake decreases.
--- NOTE | 2017-03-24 15:44 | SW/DCPLANNER ---
Order has been placed for this patient to have a nebulizer machine once ready for discharge. Patient information has been faxed to [facility]. I have spoke with Genie to confirm patient information was received. Patient neb machine will be delivered to [facility]. Patient could potentially discharge over the weekend.
--- NOTE | 2017-03-24 17:24 | PC.NURSE ---
PATIENT RESTING IN BED AT THIS TIME. PATIENT HAS BEEN UP TODAY WALKING AROUND IN HER ROOM. PATIENT STATES THAT SHE DOES NOT HAVE ANY PAIN. NO DISTRESS NOTED, DENIES ANY NEEDS, WILL CONTINUE TO MONITOR.
[2017-03-25] VITALS (10 sets, daily range): BP systolic 135–162; BP diastolic 66–78; PULSE 66–87; RESP 16–18; TEMP 36.4–36.9; O2SAT 94–98
--- NOTE | 2017-03-25 05:36 | PC.NURSE ---
REQUESTED PRN COUGH MEDICATION, ADMINISTERED PER APR. LOOSE COUGH NOTED. C/O MARSHALL AT BEGINNING OF SHIFT, PRN IBUPROFEN ADMINISTERED PER APR. ON REASSESSMENT, PT NOTED WITH EYES CLOSED AND RESTING IN BED. NO FURTHER COMPLAINTS STATED. INDEPENDENT WITH ADLS. COLOSTOMY NOTED ON LUQ OF ABDOMEN, CDI WITH NO S/S OF INFECTION. PT REPORTS FLATUS BUT NO STOOL. UNACCESSED PORT SITE NOTED ON L UPPER PORTION OF CHEST, CDI WITH NO S/S OF INFECTION. LUNG SOUNDS NOTED WITH SCATTERED WHEEZING AND RHONCHI PER AUSCULTATION. TOLERATED RA WELL. VSS. WILL CONTINUE TO MONITOR.
--- NOTE | 2017-03-25 08:53 | HMH.ACPN2 ---
Internal Medicine - PN: Subj *Date: 03/25/17 *Time: 08:53 Interval history: Patient feels a little better today, less wheezing. Exam Vital signs and Labs for Last 24 Hours: Temp Pulse Resp BP Pulse Ox 97.5 F L 76 18 155/66 98 03/25/17 08:00 03/25/17 08:00 03/25/17 08:00 03/25/17 08:00 03/25/17 08:00 Laboratory Results - last 24 hr 03/24/17 13:38: WBC 4.9 D, RBC 3.87 L, Hgb 11.3 L, Hct 34.3 L, MCV 88.7, MCH 29.2, MCHC 32.9, RDW 17.0, Plt Count 250, MPV 8.1, Neut % (Auto) 83.2 H, Lymph % (Auto) 8.4 L, [place] % (Auto) 6.6, Eos % (Auto) 1.5, Baso % (Auto) 0.3, Neut # (Auto) 4.1, Lymph # (Auto) 0.4 L, [place] # (Auto) 0.3, Eos # (Auto) 0.1, Baso # (Auto) 0.0 03/24/17 13:38: Sodium 135 L, Potassium 3.1 L, Chloride 100, Carbon Dioxide 25, Anion Gap 13.1, BUN 2 L D, Creatinine 0.67 D, Estimated Creat Clear 42, Estimated GFR 88, Est GFR ( Amer) 107 D, Glucose 112 H I & O for Last 24 hours: Intake & Output 03/22/17 03/23/17 03/24/17 03/25/17 11:59 11:59 11:59 11:59 Intake Total 240 / 240 1884 / 1884 2808 / 2808 750 / 750 Output Total 300 / 300 300 / 300 Balance -60 / -60 1584 / 1584 2808 / 2808 750 / 750 Weight 107 lb 1 oz 107 lb 1.009 oz - Constitutional no acute distress - *Routine Respiratory Exam Present: wheezes (few, much better air movement today) - *Routine Cardiovascular Exam Present: RRR Assessment and Plan (1) Enterobacter cloacae pneumonia Current visit: Yes Status: Acute Category: Medical Code(s): J15.6 - Pneumonia due to other Gram-negative bacteria (2) Streptococcus pneumoniae pneumonia Current visit: Yes Status: Acute Category: Medical Code(s): J13 - Pneumonia due to Streptococcus pneumoniae (3) Bilateral pneumonia Current visit: Yes Status: Acute Qualifiers: Pneumonia type: due to unspecified organism Lung location: unspecified part of lung Qualified Code(s): J18.9 - Pneumonia, unspecified organism Category: Medical Code(s): J18.9 - Pneumonia, unspecified organism (4) COPD (chronic obstructive pulmonary disease) Current visit: Yes Status: Acute Category: Medical Code(s): J44.9 - Chronic obstructive pulmonary disease, unspecified (5) Rectal cancer metastasized to liver Current visit: Yes Status: Acute Category: Medical Code(s): C20 - Malignant neoplasm of rectum; C78.7 - Secondary malignant neoplasm of liver and intrahepatic bile duct (6) Tobacco use disorder Current visit: Yes Status: Acute Category: Medical Code(s): F17.200 - Nicotine dependence, unspecified, uncomplicated (7) Hypothyroidism Current visit: Yes Status: Acute Category: Medical Code(s): E03.9 - Hypothyroidism, unspecified (8) HTN (hypertension) Current visit: Yes Status: Acute Category: Medical Code(s): I10 - Essential (primary) hypertension - Assessment and plan all Dx Assessment and Plan for all problems:: Clinically improving. Continue current treatment. Potassium replaced, recheck labs tomorrow.
--- NOTE | 2017-03-25 08:56 | P.PN_ITS ---
Internal Medicine - PN: Subj *Date: 03/25/17 *Time: 08:53 Interval history: Patient feels a little better today, less wheezing. Exam Vital signs and Labs for Last 24 Hours: Temp Pulse Resp BP Pulse Ox 97.5 F L 76 18 155/66 98 03/25/17 08:00 03/25/17 08:00 03/25/17 08:00 03/25/17 08:00 03/25/17 08:00 Laboratory Results - last 24 hr 03/24/17 13:38: WBC 4.9 D, RBC 3.87 L, Hgb 11.3 L, Hct 34.3 L, MCV 88.7, MCH 29.2, MCHC 32.9, RDW 17.0, Plt Count 250, MPV 8.1, Neut % (Auto) 83.2 H, Lymph % (Auto) 8.4 L, [place] % (Auto) 6.6, Eos % (Auto) 1.5, Baso % (Auto) 0.3, Neut # ( Auto) 4.1, Lymph # (Auto) 0.4 L, [place] # (Auto) 0.3, Eos # (Auto) 0.1, Baso # ( Auto) 0.0 03/24/17 13:38: Sodium 135 L, Potassium 3.1 L, Chloride 100, Carbon Dioxide 25, Anion Gap 13.1, BUN 2 L D, Creatinine 0.67 D, Estimated Creat Clear 42, Estimated GFR 88, Est GFR ( Amer) 107 D, Glucose 112 H I & O for Last 24 hours: Intake & Output 03/22/17 03/23/17 03/24/17 03/25/17 11:59 11:59 11:59 11:59 Intake Total 240 / 240 1884 / 1884 2808 / 2808 750 / 750 Output Total 300 / 300 300 / 300 Balance -60 / -60 1584 / 1584 2808 / 2808 750 / 750 Weight 107 lb 1 oz 107 lb 1.009 oz - Constitutional no acute distress - *Routine Respiratory Exam Present: wheezes (few, much better air movement today) - *Routine Cardiovascular Exam Present: RRR Assessment and Plan (1) Enterobacter cloacae pneumonia Current visit: Yes Status: Acute Category: Medical Code(s): J15.6 - Pneumonia due to other Gram-negative bacteria (2) Streptococcus pneumoniae pneumonia Current visit: Yes Status: Acute Category: Medical Code(s): J13 - Pneumonia due to Streptococcus pneumoniae (3) Bilateral pneumonia Current visit: Yes Status: Acute Qualifiers: Pneumonia type: due to unspecified organism Lung location: unspecified part of lung Qualified Code(s): J18.9 - Pneumonia, unspecified organism Category: Medical Code(s): J18.9 - Pneumonia, unspecified organism (4) COPD (chronic obstructive pulmonary disease) Current visit: Yes Status: Acute Category: Medical Code(s): J44.9 - Chronic obstructive pulmonary disease, unspecified (5) Rectal cancer metastasized to liver Current visit: Yes Status: Acute Category: Medical Code(s): C20 - Malignant neoplasm of rectum; C78.7 - Secondary malignant neoplasm of liver and intrahepatic bile duct (6) Tobacco use disorder Current visit: Yes Status: Acute Category: Medical Code(s): F17.200 - Nicotine dependence, unspecified, uncomplicated (7) Hypothyroidism Current visit: Yes Status: Acute Category: Medical Code(s): E03.9 - Hypothyroidism, unspecified (8) HTN (hypertension) Current visit: Yes Status: Acute Category: Medical Code(s): I10 - Essential (primary) hypertension - Assessment and plan all Dx Assessment and Plan for all problems:: Clinically improving. Continue current treatment. Potassium replaced, recheck labs tomorrow.
--- NOTE | 2017-03-25 09:00 | P.PN_ITS ---
Internal Medicine - PN: Subj *Date: 03/25/17 *Time: 09:00 Exam Vital signs and Labs for Last 24 Hours: Temp Pulse Resp BP Pulse Ox 97.5 F L 76 18 155/66 98 03/25/17 08:00 03/25/17 08:00 03/25/17 08:00 03/25/17 08:00 03/25/17 08:00 Laboratory Results - last 24 hr 03/24/17 13:38: WBC 4.9 D, RBC 3.87 L, Hgb 11.3 L, Hct 34.3 L, MCV 88.7, MCH 29.2, MCHC 32.9, RDW 17.0, Plt Count 250, MPV 8.1, Neut % (Auto) 83.2 H, Lymph % (Auto) 8.4 L, [place] % (Auto) 6.6, Eos % (Auto) 1.5, Baso % (Auto) 0.3, Neut # ( Auto) 4.1, Lymph # (Auto) 0.4 L, [place] # (Auto) 0.3, Eos # (Auto) 0.1, Baso # ( Auto) 0.0 03/24/17 13:38: Sodium 135 L, Potassium 3.1 L, Chloride 100, Carbon Dioxide 25, Anion Gap 13.1, BUN 2 L D, Creatinine 0.67 D, Estimated Creat Clear 42, Estimated GFR 88, Est GFR ( Amer) 107 D, Glucose 112 H I & O for Last 24 hours: Intake & Output 03/22/17 03/23/17 03/24/17 03/25/17 23:59 23:59 23:59 23:59 Intake Total 600 / 600 3610 / 3610 722 / 722 750 / 750 Output Total 600 / 600 Balance 0 / 0 3610 / 3610 722 / 722 750 / 750 Weight 48.563 kg Assessment and Plan (1) Enterobacter cloacae pneumonia Current visit: Yes Status: Acute Category: Medical Code(s): J15.6 - Pneumonia due to other Gram-negative bacteria (2) Streptococcus pneumoniae pneumonia Current visit: Yes Status: Acute Category: Medical Code(s): J13 - Pneumonia due to Streptococcus pneumoniae (3) Bilateral pneumonia Current visit: Yes Status: Acute Qualifiers: Pneumonia type: due to unspecified organism Lung location: unspecified part of lung Qualified Code(s): J18.9 - Pneumonia, unspecified organism Category: Medical Code(s): J18.9 - Pneumonia, unspecified organism (4) COPD (chronic obstructive pulmonary disease) Current visit: Yes Status: Acute Category: Medical Code(s): J44.9 - Chronic obstructive pulmonary disease, unspecified (5) Rectal cancer metastasized to liver Current visit: Yes Status: Acute Category: Medical Code(s): C20 - Malignant neoplasm of rectum; C78.7 - Secondary malignant neoplasm of liver and intrahepatic bile duct (6) Tobacco use disorder Current visit: Yes Status: Acute Category: Medical Code(s): F17.200 - Nicotine dependence, unspecified, uncomplicated (7) Hypothyroidism Current visit: Yes Status: Acute Category: Medical Code(s): E03.9 - Hypothyroidism, unspecified (8) HTN (hypertension) Current visit: Yes Status: Acute Category: Medical Code(s): I10 - Essential (primary) hypertension The patient's infection will respond to the chosen ABx?: Yes Is the patient receiving the right drug, dose, and route?: Yes Could a more targeted ABx be ordered?: No
[2017-03-26 03:47] VITALS: BP 123/71; PULSE 75; RESP 16; TEMP 36.8; O2SAT 96
--- NOTE | 2017-03-26 05:39 | PC.NURSE ---
NO COMPLAINTS STATED. LUNG SOUNDS CLEAR BUT DIMINISHED IN BILAT BASES ON AUSCULTATION THIS SHIFT. UNACCESSED PORT SITE ASSESSED, CDI WITH NO S/S OF INFECTION. COLOSTOMY NOTED IN LUQ OF ABDOMEN, CDI. INDEPENDENT WITH ADLS. SLEPT IN INTERVALS THIS SHIFT. VSS. WILL CONTINUE TO MONITOR.
[2017-03-26 06:10] VITALS: PULSE 68; O2SAT 97
[2017-03-26 06:39] LABS: Basophils % 0.4 % (0.1-2.0); Eosinophils # 0.1 K/mm3 (0.0-0.4); Eosinophils % 3.3 % (0.1-12.0); Hematocrit 36.2 % (37.0-47.0); Hemoglobin 11.8 g/dL (12.2-16.2); Lymphocytes # 0.4 K/mm3 (0.7-4.5); Lymphocytes % 10.9 K/mm3 (10-50); Mean Corpuscular HGB Conc 32.6 g/dL (31.8-35.4); Mean Corpuscular Volume 88.9 fl (81-99); Mean Platelet Volume 7.5 fl (7.4-10.4); Monocytes # 0.3 K/mm3 (0.1-1.0); Monocytes % 8.6 % (1.7-9.3); Neutrophils # 3.1 K/mm3 (1.8-7.8); Neutrophils % 76.8 % (37.0-80.0); Platelet Count 320 K/mm3 (142-424); Red Blood Count 4.07 M/mm3 (4.20-5.40); Red Cell Distribution Width 17.4 % (11.5-17.5)
[2017-03-26 06:46] LABS: Anion Gap 13.3 mEq/L (5-15); Blood Urea Nitrogen 5 mg/dL (7-18); Carbon Dioxide 22 mmol/L (21.0-32.0); Chloride 102 mmol/L (98-107); Creatinine Clearance Estimated 42 mL/min (0-300); Creatinine,Serum 0.65 mg/dL (0.55-1.02); Estimated Glomerular Filt Rate 91 ml/min (>60); GFR (African American) 110 ML/MIN (>60); Glucose 92 mg/dL (74-106); Potassium 4.3 mmoL/L (3.5-5.1); Sodium 133 mmol/L (136-145)
--- NOTE | 2017-03-26 07:16 | PC.NURSE ---
REPORT GIVEN TO Lino SÁNCHEZ W/C
[2017-03-26 08:00] VITALS: BP 177/83; PULSE 84; RESP 18; TEMP 36.8; O2SAT 99
[2017-03-26 09:01] VITALS: O2SAT 99
--- NOTE | 2017-03-26 09:08 | HMH.ACPN2 ---
Internal Medicine - PN: Subj *Date: 03/26/17 *Time: 09:08 Interval history: Patient feels better today, wants to go home. Exam Vital signs and Labs for Last 24 Hours: Temp Pulse Resp BP Pulse Ox 98.2 F 84 18 177/83 99 03/26/17 08:00 03/26/17 08:00 03/26/17 08:00 03/26/17 08:00 03/26/17 09:01 Laboratory Results - last 24 hr 03/26/17 06:20: WBC 4.0 L, RBC 4.07 L, Hgb 11.8 L, Hct 36.2 L, MCV 88.9, MCH 29.0, MCHC 32.6, RDW 17.4, Plt Count 320 D, MPV 7.5, Neut % (Auto) 76.8, Lymph % (Auto) 10.9, [place] % (Auto) 8.6, Eos % (Auto) 3.3, Baso % (Auto) 0.4, Neut # (Auto) 3.1, Lymph # (Auto) 0.4 L, [place] # (Auto) 0.3, Eos # (Auto) 0.1, Baso # (Auto) 0.0 03/26/17 06:20: Sodium 133 L, Potassium 4.3 D, Chloride 102, Carbon Dioxide 22, Anion Gap 13.3, BUN 5 L D, Creatinine 0.65, Estimated Creat Clear 42, Estimated GFR 91, Est GFR ( Amer) 110, Glucose 92 Vital Signs Temp Pulse Pulse Resp BP BP Pulse Ox 03/26/17 09:01 99 03/26/17 08:00 98.2 F 84 18 177/83 99 03/26/17 06:10 68 97 03/26/17 03:47 98.2 F 75 16 123/71 96 03/25/17 23:42 98.4 F 87 16 144/78 97 03/25/17 20:26 76 03/25/17 19:53 98.0 F 81 16 162/78 97 03/25/17 16:00 98.3 F 86 16 146/75 97 03/25/17 13:53 77 03/25/17 11:49 97.8 F 87 18 144/71 98 Intake and Output 03/25/17 03/26/17 03/26/17 19:59 03:59 11:59 Intake Total 750 / 750 360 / 360 Balance 750 / 750 360 / 360 Intake: Intake, Oral Amount 700 / 700 360 / 360 Intake, Total IV Amount 50 / 50 Ceftriaxone Sodium 1 gm In 0.9 50 / 50 % Sodium Chloride 50 ml @ 100 mls/hr IV DAILY [facility] Rx#: [id number] Other: Number of Voids 1 Number of Unmeasured Voids 4 1 Number of Bowel Movements 0 I & O for Last 24 hours: Intake & Output 03/23/17 03/24/17 03/25/17 03/26/17 11:59 11:59 11:59 11:59 Intake Total 1884 / 1884 2808 / 2808 750 / 750 1110 / 1110 Output Total 300 / 300 Balance 1584 / 1584 2808 / 2808 750 / 750 1110 / 1110 Weight 107 lb 1.009 oz - Constitutional no acute distress - *Routine HEENT Exam ENT: Present: mucous membranes moist - *Routine Respiratory Exam Absent: wheezes, crackles Comments: Good air movement, basically clear, occasional coarse breath sound - *Routine Cardiovascular Exam Present: RRR Assessment and Plan (1) Enterobacter cloacae pneumonia Current visit: Yes Status: Acute Category: Medical Code(s): J15.6 - Pneumonia due to other Gram-negative bacteria (2) Streptococcus pneumoniae pneumonia Current visit: Yes Status: Acute Category: Medical Code(s): J13 - Pneumonia due to Streptococcus pneumoniae (3) Bilateral pneumonia Current visit: Yes Status: Acute Qualifiers: Pneumonia type: due to unspecified organism Lung location: unspecified part of lung Qualified Code(s): J18.9 - Pneumonia, unspecified organism Category: Medical Code(s): J18.9 - Pneumonia, unspecified organism (4) COPD (chronic obstructive pulmonary disease) Current visit: Yes Status: Acute Category: Medical Code(s): J44.9 - Chronic obstructive pulmonary disease, unspecified (5) Rectal cancer metastasized to liver Current visit: Yes Status: Acute Category: Medical Code(s): C20 - Malignant neoplasm of rectum; C78.7 - Secondary malignant neoplasm of liver and intrahepatic bile duct (6) Tobacco use disorder Current visit: Yes Status: Acute Category: Medical Code(s): F17.200 - Nicotine dependence, unspecified, uncomplicated (7) Hypothyroidism Current visit: Yes Status: Acute Category: Medical Code(s): E03.9 - Hypothyroidism, unspecified (8) HTN (hypertension) Current visit: Yes Status: Acute Category: Medical Code(s): I10 - Essential (primary) hypertension - Assessment and plan all Dx Assessment and Plan for all problems:: OK for discharge today. Will continue antibiotic
--- NOTE | 2017-03-26 09:12 | P.PN_ITS ---
Internal Medicine - PN: Subj *Date: 03/26/17 *Time: 09:08 Interval history: Patient feels better today, wants to go home. Exam Vital signs and Labs for Last 24 Hours: Temp Pulse Resp BP Pulse Ox 98.2 F 84 18 177/83 99 03/26/17 08:00 03/26/17 08:00 03/26/17 08:00 03/26/17 08:00 03/26/17 09:01 Laboratory Results - last 24 hr 03/26/17 06:20: WBC 4.0 L, RBC 4.07 L, Hgb 11.8 L, Hct 36.2 L, MCV 88.9, MCH 29.0, MCHC 32.6, RDW 17.4, Plt Count 320 D, MPV 7.5, Neut % (Auto) 76.8, Lymph % (Auto) 10.9, [place] % (Auto) 8.6, Eos % (Auto) 3.3, Baso % (Auto) 0.4, Neut # ( Auto) 3.1, Lymph # (Auto) 0.4 L, [place] # (Auto) 0.3, Eos # (Auto) 0.1, Baso # ( Auto) 0.0 03/26/17 06:20: Sodium 133 L, Potassium 4.3 D, Chloride 102, Carbon Dioxide 22 , Anion Gap 13.3, BUN 5 L D, Creatinine 0.65, Estimated Creat Clear 42, Estimated GFR 91, Est GFR ( Amer) 110, Glucose 92 Vital Signs Temp Pulse Pulse Resp BP BP Pulse Ox 03/26/17 09:01 99 03/26/17 08:00 98.2 F 84 18 177/83 99 03/26/17 06:10 68 97 03/26/17 03:47 98.2 F 75 16 123/71 96 03/25/17 23:42 98.4 F 87 16 144/78 97 03/25/17 20:26 76 03/25/17 19:53 98.0 F 81 16 162/78 97 03/25/17 16:00 98.3 F 86 16 146/75 97 03/25/17 13:53 77 03/25/17 11:49 97.8 F 87 18 144/71 98 Intake and Output 03/25/17 03/26/17 03/26/17 19:59 03:59 11:59 Intake Total 750 / 750 360 / 360 Balance 750 / 750 360 / 360 Intake: Intake, Oral Amount 700 / 700 360 / 360 Intake, Total IV Amount 50 / 50 Ceftriaxone Sodium 1 gm In 0.9 50 / 50 % Sodium Chloride 50 ml @ 100 mls/hr IV DAILY [facility] Rx#: [id number] Other: Number of Voids 1 Number of Unmeasured Voids 4 1 Number of Bowel Movements 0 I & O for Last 24 hours: Intake & Output 03/23/17 03/24/17 03/25/17 03/26/17 11:59 11:59 11:59 11:59 Intake Total 1884 / 1884 2808 / 2808 750 / 750 1110 / 1110 Output Total 300 / 300 Balance 1584 / 1584 2808 / 2808 750 / 750 1110 / 1110 Weight 107 lb 1.009 oz - Constitutional no acute distress - *Routine HEENT Exam ENT: Present: mucous membranes moist - *Routine Respiratory Exam Absent: wheezes, crackles Comments: Good air movement, basically clear, occasional coarse breath sound - *Routine Cardiovascular Exam Present: RRR Assessment and Plan (1) Enterobacter cloacae pneumonia Current visit: Yes Status: Acute Category: Medical Code(s): J15.6 - Pneumonia due to other Gram-negative bacteria (2) Streptococcus pneumoniae pneumonia Current visit: Yes Status: Acute Category: Medical Code(s): J13 - Pneumonia due to Streptococcus pneumoniae (3) Bilateral pneumonia Current visit: Yes Status: Acute Qualifiers: Pneumonia type: due to unspecified organism Lung location: unspecified part of lung Qualified Code(s): J18.9 - Pneumonia, unspecified organism Category: Medical Code(s): J18.9 - Pneumonia, unspecified organism (4) COPD (chronic obstructive pulmonary disease) Current visit: Yes Status: Acute Category: Medical Code(s): J44.9 - Chronic obstructive pulmonary disease, unspecified (5) Rectal cancer metastasized to liver
[2017-03-26 09:15] VITALS: PULSE 99; RESP 18; O2SAT 99
--- NOTE | 2017-03-27 12:57 | HMH.DCSUM ---
General - General Admission date: 03/21/17 Discharge date: 03/26/17 HPI HPI: Ms. Delarosa is a 66-year-old female with a history of metastatic rectal carcinoma metastasized to the lung and liver, thyroid disease, hypertension, and tobacco use disorder. Patient presented to the emergency room after experiencing a cough for about 1 week and nausea ?1 week; she reports eating minimally but was able to continue to drink fluids. She did not vomit. She began to run a fever yesterday and decided to be evaluated in the emergency room. She was evaluated and felt to have a pneumonia. She was admitted for further evaluation and treatment. Of note, she has been receiving chemotherapy with her last treatment being 10 days ago. She has also had 27 radiation treatments;she has 1 additional chemotherapy remaining. Objective Vital signs: Temp Pulse Resp BP Pulse Ox 98.2 F 99 H 18 177/83 99 03/26/17 08:00 03/26/17 09:15 03/26/17 09:15 03/26/17 08:00 03/26/17 09:15 Narrative: - Constitutional no acute distress Comments: Sitting up in the bed eating breakfast. Appears comfortable. - *Routine HEENT Exam Head: Present: normocephalic, atraumatic Eye: Present: PERRL. Absent: scleral injection ENT: Present: mucous membranes moist, oropharynx clear - *Routine Neck Exam Absent: carotid bruit, lymphadenopathy, thyromegaly - *Routine Respiratory Exam Present: rhonchi. Absent: wheezes Comments: Congested cough - *Routine Cardiovascular Exam Present: RRR - *Routine Abdominal Exam Present: soft, normoactive bowel sounds. Absent: tenderness, distended, guarding Comments: Colostomy bag in place - *Routine Extremities Exam Absent: edema, calf tenderness - *Routine Neurological Exam Present: alert, oriented X3 Hospital Course Hospital Course: The patient was started on abx and neb treatments. A repeat CXR showed bilateral lower lobe pneumonia. Patient's sputum was positive for enterobacter and strep pneumoniae. Her abx were continued. She improved and was stable to be discharged home on antibiotics and neb treatments. She will f/u in the office in 5 days. DS: Diagnosis - Discharge Diagnosis (1) Enterobacter cloacae pneumonia Status: Acute (2) Streptococcus pneumoniae pneumonia Status: Acute (3) Bilateral pneumonia Status: Acute (4) COPD (chronic obstructive pulmonary disease) Status: Acute (5) Rectal cancer metastasized to liver Status: Acute (6) Tobacco use disorder Status: Acute (7) Hypothyroidism Status: Acute (8) HTN (hypertension) Status: Acute Discharge Plan - Patient Discharge Instructions ACTIVITY: Continue current activity DIET: continue same diet Patient Instructions: Pneumonia-Adult - Follow up Plan Follow up with: Awais Schmidt MD [Primary Care Provider] - 03/31/17 Disposition: Xfer [facility] Home Medications: Home Medications Medication Instructions Recorded Confirmed Type levothyroxine 75 mcg capsule 75 mcg PO DAILY 02/15/17 03/21/17 History lisinopril 20 mg tablet 40 mg PO DAILY 02/15/17 03/22/17 History metoprolol tartrate 50 mg tablet 50 mg PO BID 02/15/17 03/22/17 History potassium chloride ER 20 mEq 20 meq PO DAILY tab 02/15/17 03/21/17 History tablet,extended release(part/cryst) Trazodone HCl 50 - 100 mg PO HS 03/21/17 03/22/17 History Amlodipine Besylate [Norvasc 10mg 10 mg PO DAILY 03/22/17 03/22/17 History tablet] Oxycodone HCl [OxyIR 5mg tablet] 5 mg PO Q4HP PRN 03/22/17 03/22/17 History Prescriptions/Medication Reconciliation: New Albuterol Sulfate [Albuterol 0.083% 2.5mg/3mL neb] 2.5 mg IH Q6HP PRN #30 neb PRN Reason: Shortness Of Breath Or Wheezing Azithromycin [Zithromax 500mg Tab Tri-Tarun] 500 mg PO DAILY #3 tab Cefdinir [Omnicef 300mg Capsule] 300 mg PO BID #20 cap raNITIdine HCl [Ranitidine HCl] 150 mg PO BID #60 tab Continue
--- NOTE | 2017-03-27 13:00 | P.DS_ITS ---
General - General Admission date: 03/21/17 Discharge date: 03/26/17 HPI HPI: Ms. Delarosa is a 66-year-old female with a history of metastatic rectal carcinoma metastasized to the lung and liver, thyroid disease, hypertension, and tobacco use disorder. Patient presented to the emergency room after experiencing a cough for about 1 week and nausea ?1 week; she reports eating minimally but was able to continue to drink fluids. She did not vomit. She began to run a fever yesterday and decided to be evaluated in the emergency room. She was evaluated and felt to have a pneumonia. She was admitted for further evaluation and treatment. Of note, she has been receiving chemotherapy with her last treatment being 10 days ago. She has also had 27 radiation treatments;she has 1 additional chemotherapy remaining. Objective Vital signs: Temp Pulse Resp BP Pulse Ox 98.2 F 99 H 18 177/83 99 03/26/17 08:00 03/26/17 09:15 03/26/17 09:15 03/26/17 08:00 03/26/17 09:15 Narrative: - Constitutional no acute distress Comments: Sitting up in the bed eating breakfast. Appears comfortable. - *Routine HEENT Exam Head: Present: normocephalic, atraumatic Eye: Present: PERRL. Absent: scleral injection ENT: Present: mucous membranes moist, oropharynx clear - *Routine Neck Exam Absent: carotid bruit, lymphadenopathy, thyromegaly - *Routine Respiratory Exam Present: rhonchi. Absent: wheezes Comments: Congested cough - *Routine Cardiovascular Exam Present: RRR - *Routine Abdominal Exam Present: soft, normoactive bowel sounds. Absent: tenderness, distended, guarding Comments: Colostomy bag in place - *Routine Extremities Exam Absent: edema, calf tenderness - *Routine Neurological Exam Present: alert, oriented X3 Hospital Course Hospital Course: The patient was started on abx and neb treatments. A repeat CXR showed bilateral lower lobe pneumonia. Patient's sputum was positive for enterobacter and strep pneumoniae. Her abx were continued. She improved and was stable to be discharged home on antibiotics and neb treatments. She will f/u in the office in 5 days. DS: Diagnosis - Discharge Diagnosis (1) Enterobacter cloacae pneumonia Status: Acute (2) Streptococcus pneumoniae pneumonia Status: Acute (3) Bilateral pneumonia Status: Acute (4) COPD (chronic obstructive pulmonary disease) Status: Acute (5) Rectal cancer metastasized to liver Status: Acute (6) Tobacco use disorder Status: Acute (7) Hypothyroidism Status: Acute (8) HTN (hypertension) Status: Acute Discharge Plan - Patient Discharge Instructions ACTIVITY: Continue current activity DIET: continue same diet Patient Instructions: Pneumonia-Adult - Follow up Plan Follow up with: Awais Schmidt MD [Primary Care Provider] - 03/31/17 Disposition: er [facility] Home Medications: Home Medications Medication Instructions Recorded Confirmed Type levothyroxine 75 mcg capsule 75 mcg PO DAILY 02/15/17 03/21/17 History lisinopril 20 mg tablet 40 mg PO DAILY 02/15/17 03/22/17 History metoprolol tartrate 50 mg tablet 50 mg PO BID 02/15/17 03/22/17 History potassium chloride ER 20 mEq 20 meq PO DAILY tab 02/15/17 03/21/17 History tablet,extended release(part/cryst) Trazodone HCl 50 - 10
== END 2017-03-26 10:10 | DRG 178 ==
LOC: ER 19:32 → 2ND 19:39
PROVIDERS: Admitting Provider Family Medicine; Emergency Provider Emergency Medicine; Family Provider Family Medicine; PCP Family Medicine; Visit Provider Family Medicine
DX: J15.6 Pneumonia due to other Gram-negative bacteria (principal); C20 Malignant neoplasm of rectum; C78.7 Secondary malignant neoplasm of liver and intrahepatic bile duct; C78.89 Secondary malignant neoplasm of other digestive organs; E03.9 Hypothyroidism, unspecified; Z72.0 Tobacco use; I10 Essential (primary) hypertension; J13 Pneumonia due to Streptococcus pneumoniae
CPT/HCPCS: 36415; 71046; 80048; 80053; 83605; 83735; 85007; 85025; 87040; 87070; 87077; 87186; 87205; 87275; 87276; 94640; 94761; 96365; 96366; 99283; J0456

== ENCOUNTER 2017-04-06 08:00 | Outpatient (CLI) | payer OTHER, MEDICARE, SELFPAY ==
[2017-04-06] VITALS (16 sets, daily range): BP systolic 137–147; BP diastolic 61–68; PULSE 59–87; RESP 18–20; TEMP 36.5–36.6; O2SAT 96–97; BMI 21.1
[2017-04-06 08:40] LABS: Microscopic, Urine URINE MICROSCOPIC (MICROSCOPIC)
[2017-04-06 08:48] LABS: Basophils # 0.1 K/mm3 (0-0.2); Basophils % 1.1 % (0.1-2.0); Eosinophils # 0.2 K/mm3 (0.0-0.4); Hematocrit 38.4 % (37.0-47.0); Hemoglobin 12.5 g/dL (12.2-16.2); Lymphocytes # 0.6 K/mm3 (0.7-4.5); Lymphocytes % 10.6 K/mm3 (10-50); Mean Corpuscular HGB Conc 32.5 g/dL (31.8-35.4); Mean Corpuscular Hemoglobin 28.7 pg (27.0-31.2); Mean Corpuscular Volume 88.5 fl (81-99); Mean Platelet Volume 7.5 fl (7.4-10.4); Monocytes # 0.3 K/mm3 (0.1-1.0); Monocytes % 5.9 % (1.7-9.3); Neutrophils # 4.6 K/mm3 (1.8-7.8); Neutrophils % 79.4 % (37.0-80.0); Platelet Count 387 K/mm3 (142-424); Red Blood Count 4.34 M/mm3 (4.20-5.40); Red Cell Distribution Width 16.9 % (11.5-17.5); White Blood Count 5.8 K/mm3 (4.8-10.8)
[2017-04-06 08:49] LABS: Appearance,Urine SL CLOUDY (Clear); Bilirubin,Urine Negative (Negative); Blood, Urine TRACE-I (Negative); Color,Urine YELLOW (Yellow); Glucose,Urine (UA) Negative (Negative); Ketones,Urine Negative (Negative); Leukocyte Esterase,Urine Negative (Negative); Nitrate,Urine Negative (Negative); PH,Urine 5.5 (5.0-8.5); Protein,Urine 1+ (Negative); Specific Gravity, Urine >= 1.030 (1.005-1.030); Urobilinogen,Urine 0.2 EU/dl (0.2)
[2017-04-06 08:53] LABS: Alanine Aminotransferase 15 U/L (12-78); Albumin/Globulin Ratio 0.8 (1.1-1.8); Alkaline Phosphatase 114 U/L (46-116); Anion Gap 15.2 mEq/L (5-15); Aspartate Amino Transferase 16 U/L (15-37); Bilirubin,Total 0.2 mg/dL (0.2-1.0); Blood Urea Nitrogen 10 mg/dL (7-18); Calcium 8.3 mg/dL (8.5-10.1); Carbon Dioxide 23 mmol/L (21.0-32.0); Chloride 100 mmol/L (98-107); Creatinine Clearance Estimated 44 mL/min (0-300); Creatinine,Serum 0.86 mg/dL (0.55-1.02); Estimated Glomerular Filt Rate 66 ml/min (>60); GFR (African American) 80 ML/MIN (>60); Glucose 101 mg/dL (74-106); Potassium 4.2 mmoL/L (3.5-5.1); Sodium 134 mmol/L (136-145)
[2017-04-06 09:16] LABS: Calcium Oxalate Crystals,Urine 1+ /lpf; RBC,Urine Occasional #/hpf (0-3)
[2017-04-06 09:17] LABS: Bacteria,Urine 1+ /lpf; Mucus,Urine 4+ /lpf
== END 2017-04-06 14:05 | disposition home or self-care (01) ==
LOC: INF 08:55
PROVIDERS: Family Provider Family Medicine; PCP Family Medicine; Visit Provider Internal Medicine
DX: Z51.11 Encounter for antineoplastic chemotherapy (principal); C18.9 Malignant neoplasm of colon, unspecified
CPT/HCPCS: 80053; 81001; 85025; 96413; 96415; 96417; J9035; J9263; Q0166

== ENCOUNTER 2017-04-18 08:00 | Outpatient (CLI) | payer OTHER, MEDICARE, SELFPAY ==
[2017-04-18] VITALS (19 sets, daily range): BP systolic 123–177; BP diastolic 64–94; PULSE 58–76; RESP 18–20; TEMP 36.6; O2SAT 96–98; BMI 21.3
[2017-04-18 08:40] LABS: Microscopic, Urine URINE MICROSCOPIC (MICROSCOPIC)
[2017-04-18 08:46] LABS: Basophils % 0.6 % (0.1-2.0); Eosinophils # 0.5 K/mm3 (0.0-0.4); Eosinophils % 7.1 % (0.1-12.0); Hematocrit 40.7 % (37.0-47.0); Hemoglobin 12.9 g/dL (12.2-16.2); Lymphocytes # 0.6 K/mm3 (0.7-4.5); Lymphocytes % 9.3 K/mm3 (10-50); Mean Corpuscular HGB Conc 31.6 g/dL (31.8-35.4); Mean Corpuscular Hemoglobin 28.6 pg (27.0-31.2); Mean Corpuscular Volume 90.4 fl (81-99); Mean Platelet Volume 7.7 fl (7.4-10.4); Monocytes # 0.5 K/mm3 (0.1-1.0); Monocytes % 6.5 % (1.7-9.3); Neutrophils # 5.3 K/mm3 (1.8-7.8); Neutrophils % 76.6 % (37.0-80.0); Platelet Count 313 K/mm3 (142-424)
[2017-04-18 08:52] LABS: Appearance,Urine CLEAR (Clear); Bilirubin,Urine Negative (Negative); Blood, Urine TRACE-I (Negative); Color,Urine YELLOW (Yellow); Glucose,Urine (UA) Negative (Negative); Ketones,Urine Negative (Negative); Leukocyte Esterase,Urine 1+ (Negative); Nitrate,Urine Negative (Negative); PH,Urine 5.5 (5.0-8.5); Protein,Urine TRACE (Negative); Specific Gravity, Urine 1.015 (1.005-1.030); Urobilinogen,Urine 0.2 EU/dl (0.2)
[2017-04-18 09:00] LABS: Alanine Aminotransferase 19 U/L (12-78); Albumin Level 3.1 gm/dL (3.4-5.0); Albumin/Globulin Ratio 0.8 (1.1-1.8); Alkaline Phosphatase 119 U/L (46-116); Anion Gap 14.4 mEq/L (5-15); Aspartate Amino Transferase 19 U/L (15-37); Bilirubin,Total 0.1 mg/dL (0.2-1.0); Blood Urea Nitrogen 10 mg/dL (7-18); Calcium 8.8 mg/dL (8.5-10.1); Carbon Dioxide 23 mmol/L (21.0-32.0); Chloride 103 mmol/L (98-107); Creatinine Clearance Estimated 45 mL/min (0-300); Creatinine,Serum 0.78 mg/dL (0.55-1.02); Estimated Glomerular Filt Rate 74 ml/min (>60); GFR (African American) 89 ML/MIN (>60); Globulin 4.1 gm/dl (1.3-3.2); Glucose 97 mg/dL (74-106); Potassium 3.4 mmoL/L (3.5-5.1); Sodium 137 mmol/L (136-145); Total Protein,Serum 7.2 gm/dL (6.4-8.2)
[2017-04-18 09:11] LABS: Bacteria,Urine 1+ /lpf; RBC,Urine Occasional #/hpf (0-3)
== END 2017-04-18 14:30 | disposition home or self-care (01) ==
LOC: INF 09:21
PROVIDERS: Family Provider Family Medicine; PCP Family Medicine; Visit Provider Internal Medicine
DX: C18.9 Malignant neoplasm of colon, unspecified (principal); R82.90 Unspecified abnormal findings in urine
CPT/HCPCS: 80053; 81001; 85025; 87086; 96365; 96366; 96367; J9035; J9263; Q0166

== ENCOUNTER 2017-04-20 08:45 | Outpatient (CLI) | payer OTHER, MEDICARE, SELFPAY ==
--- NOTE | 2017-04-20 09:12 | CT_ITS ---
CT chest w con HISTORY: Follow-up rectal cancer, pulmonary nodules ITS.REASON: RECTAL CA ORDERING PHYSICIAN: Ang Pollock MD PATIENT AGE: 66 years TECHNIQUE: Axial images obtained following the administration of 75 mL of Isovue 370 . Sagittal, and coronal reformatted images are also generated and reviewed. COMPARISON: 02/09/2017 FINDINGS: No mediastinal or hilar mass or adenopathy is evident. Coronary artery calcifications are present consistent with coronary artery disease. Normal heart size. No evidence of pericardial. Mediport catheter is present from the left subclavian approach Centrilobular emphysematous changes are present there is a new 3 mm nodule in the right middle lobe centrally seen on image #55 and additional new 4 mm nodules present in the right lower lobe on image #44 posterior to the descending branch of the right pulmonary artery. A small cavitating lesion is once again noted in the right lower lobe medially measuring 8 mm previously 6 mm. Previously noted 3 mm nodule in the right middle lobe is unchanged. The nodular density in the right upper lobe medially subpleural region is unchanged.. No effusions or infiltrates. No bony destructive lesions. IMPRESSION: 1. There are at least 2 new small pulmonary nodules. One the previously mentioned nodules with central lucency is slightly larger in the right lung base medially. These findings do raise the suspicion of metastatic disease especially in this patient with multiple liver lesions. 2. Centrilobular emphysema. No mediastinal or hilar adenopathy
--- NOTE | 2017-04-20 09:13 | CT_ITS ---
CT abdomen pelvis w con CLINICAL INDICATION: Follow-up metastatic rectal cancer ITS.REASON: RECTAL CA ORDERING PHYSICIAN: Ang Pollock MD PATIENT AGE: 66 years COMPARISON: 02/09/2017 TECHNIQUE: Axial images obtained with sagittal and coronal reformats. PROCEDURE: Oral Contrast: Redicat IV Contrast: 75 mL's of Isovue-370 performed in conjunction with chest CT. FINDINGS: There are multiple liver lesions present. The largest coalescent lesion is in the junction of the right and left hepatic lobe and measures 7. Abdomen by 5 x 7.9 cm previously 6.8 x 4.3 x 7.2 cm. The next largest lesion is posterior to this area measures 2.9 x 2 cm previously 2.4 x 2 cm. There are new lesions in the inferior aspect of the right hepatic lobe. The spleen is unremarkable. The left adrenal gland is enlarged at 21.4 cm not significant change. No hydronephrosis. The pancreas has an unremarkable appearance. Left lower quadrant diverting colostomy is noted. Prior hysterectomy. Postsurgical changes of the rectal region. There remains moderate thickening of the perineal tissues not significantly changed. No bony destructive process evident. IMPRESSION: 1. Multiple liver lesions once again noted. These lesions appear slightly larger with a few new lesions in the right hepatic lobe inferiorly consistent with progression of hepatic metastasis. 2. No change left adrenal mass. 3. Postsurgical changes from prior rectal surgery with persistent thickening of the peroneal tissue
--- NOTE | 2017-04-20 10:58 | HMH.ITSHM ---
LISINOPRIOL,LEVOTHYROXINE A,;PDO[OMEONDARSETERON OMEPRAZOEL.TRAZADONE
== END 2017-04-20 10:00 | disposition home or self-care (01) ==
LOC: INF 10:01
PROVIDERS: Family Provider Family Medicine; PCP Family Medicine; Visit Provider Internal Medicine
DX: C20 Malignant neoplasm of rectum (principal); Z03.89 Encounter for observation for other suspected diseases and conditions ruled out
CPT/HCPCS: 71260; 74177; J1642; Q9967

== ENCOUNTER → 2017-05-12 12:58 | Outpatient (CLI) | payer OTHER, MEDICARE, SELFPAY ==
[2017-05-12 14:30] LABS: Alanine Aminotransferase 23 U/L (12-78); Albumin Level 3.4 gm/dL (3.4-5.0); Albumin/Globulin Ratio 0.9 (1.1-1.8); Alkaline Phosphatase 156 U/L (46-116); Anion Gap 13.1 mEq/L (5-15); Aspartate Amino Transferase 30 U/L (15-37); Bilirubin,Total 0.2 mg/dL (0.2-1.0); Blood Urea Nitrogen 9 mg/dL (7-18); Calcium 9.4 mg/dL (8.5-10.1); Carbon Dioxide 27 mmol/L (21.0-32.0); Chloride 101 mmol/L (98-107); Creatinine,Serum 0.66 mg/dL (0.55-1.02); Estimated Glomerular Filt Rate 90 ml/min (>60); GFR (African American) 108 ML/MIN (>60); Globulin 3.8 gm/dl (1.3-3.2); Glucose 81 mg/dL (74-106); Potassium 4.1 mmoL/L (3.5-5.1); Sodium 137 mmol/L (136-145); Total Protein,Serum 7.2 gm/dL (6.4-8.2)
[2017-05-12 14:53] LABS: Basophils % 0.6 % (0.1-2.0); Eosinophils # 0.1 K/mm3 (0.0-0.4); Eosinophils % 2.3 % (0.1-12.0); Hematocrit 43.6 % (37.0-47.0); Hemoglobin 13.8 g/dL (12.2-16.2); Lymphocytes # 0.7 K/mm3 (0.7-4.5); Lymphocytes % 11.3 K/mm3 (10-50); Mean Corpuscular HGB Conc 31.7 g/dL (31.8-35.4); Mean Corpuscular Hemoglobin 28.9 pg (27.0-31.2); Mean Corpuscular Volume 91.1 fl (81-99); Mean Platelet Volume 7.9 fl (7.4-10.4); Monocytes # 0.3 K/mm3 (0.1-1.0); Monocytes % 5.5 % (1.7-9.3); Neutrophils # 4.9 K/mm3 (1.8-7.8); Neutrophils % 80.4 % (37.0-80.0); Platelet Count 316 K/mm3 (142-424); Red Blood Count 4.78 M/mm3 (4.20-5.40); Red Cell Distribution Width 16.3 % (11.5-17.5); White Blood Count 6.1 K/mm3 (4.8-10.8)
== END ==
PROVIDERS: Visit Provider Internal Medicine
DX: C18.9 Malignant neoplasm of colon, unspecified (principal)
CPT/HCPCS: 36415; 80053; 85025

== ENCOUNTER → 2017-05-31 09:56 | Outpatient (CLI) | payer OTHER, MEDICARE, SELFPAY ==
[2017-05-31 12:14] LABS: Alanine Aminotransferase 24 U/L (12-78); Albumin Level 3.6 gm/dL (3.4-5.0); Albumin/Globulin Ratio 0.9 (1.1-1.8); Alkaline Phosphatase 218 U/L (46-116); Aspartate Amino Transferase 40 U/L (15-37); Bilirubin,Total 0.2 mg/dL (0.2-1.0); Blood Urea Nitrogen 11 mg/dL (7-18); Calcium 9.6 mg/dL (8.5-10.1); Carbon Dioxide 25 mmol/L (21.0-32.0); Chloride 102 mmol/L (98-107); Creatinine,Serum 0.69 mg/dL (0.55-1.02); Estimated Glomerular Filt Rate 85 ml/min (>60); GFR (African American) 103 ML/MIN (>60); Globulin 4.1 gm/dl (1.3-3.2); Glucose 85 mg/dL (74-106); Sodium 138 mmol/L (136-145); Total Protein,Serum 7.7 gm/dL (6.4-8.2)
== END ==
PROVIDERS: Family Provider Family Medicine; PCP Family Medicine; Visit Provider Internal Medicine
DX: C18.9 Malignant neoplasm of colon, unspecified (principal); Z45.2 Encounter for adjustment and management of vascular access device
CPT/HCPCS: 36415; 80053

== ENCOUNTER → 2017-06-12 08:57 | Outpatient (CLI) | payer OTHER, MEDICARE, SELFPAY ==
[2017-06-12 10:36] LABS: Alanine Aminotransferase 25 U/L (12-78); Albumin Level 3.4 gm/dL (3.4-5.0); Albumin/Globulin Ratio 0.9 (1.1-1.8); Alkaline Phosphatase 242 U/L (46-116); Anion Gap 13.3 mEq/L (5-15); Aspartate Amino Transferase 35 U/L (15-37); Bilirubin,Total 0.2 mg/dL (0.2-1.0); Blood Urea Nitrogen 9 mg/dL (7-18); Calcium 9.7 mg/dL (8.5-10.1); Carbon Dioxide 27 mmol/L (21.0-32.0); Chloride 105 mmol/L (98-107); Creatinine,Serum 0.74 mg/dL (0.55-1.02); Estimated Glomerular Filt Rate 79 ml/min (>60); GFR (African American) 95 ML/MIN (>60); Globulin 3.7 gm/dl (1.3-3.2); Glucose 82 mg/dL (74-106); Potassium 4.3 mmoL/L (3.5-5.1); Sodium 141 mmol/L (136-145); Total Protein,Serum 7.1 gm/dL (6.4-8.2)
== END ==
PROVIDERS: Visit Provider Internal Medicine
DX: C20 Malignant neoplasm of rectum (principal)
CPT/HCPCS: 36415; 80053

== ENCOUNTER → 2017-06-28 13:19 | Outpatient (CLI) | payer OTHER, MEDICARE, SELFPAY ==
--- NOTE | 2017-06-28 13:25 | XR_ITS ---
EXAM: XR lumbar spine min 4V HISTORY: ITS.REASON: METASTATIC RECTAL CA, BACK PAIN RADIATING TO RT HIP ORDERING PHYSICIAN: Racheal Berumen PATIENT AGE: 66 years COMPARISON: None FINDINGS: There is normal alignment. Mild degenerative disc disease is present from T12 to L1 4. No obvious lytic or blastic change. On the right posterior oblique view there is a lucency through the left transverse process of L1 suggesting a nondisplaced fracture. This may be confirmed with CT if clinically warranted. IMPRESSION: Degenerative changes. Nondisplaced oblique fractures the left transverse process of L1
== END ==
PROVIDERS: PCP Family Medicine; Visit Provider Nurse Practitioner
DX: C20 Malignant neoplasm of rectum (principal); C78.7 Secondary malignant neoplasm of liver and intrahepatic bile duct; C78.00 Secondary malignant neoplasm of unspecified lung; M54.40 Lumbago with sciatica, unspecified side
CPT/HCPCS: 72110

== ENCOUNTER 2017-06-29 08:20 | Outpatient (CLI) | payer OTHER, MEDICARE, SELFPAY ==
[2017-06-29 08:27] VITALS: BMI 20.8
[2017-06-29 08:49] LABS: Microscopic, Urine URINE MICROSCOPIC (MICROSCOPIC)
[2017-06-29 08:51] LABS: Basophils % 0.6 % (0.1-2.0); Eosinophils # 0.3 K/mm3 (0.0-0.4); Eosinophils % 3.6 % (0.1-12.0); Hematocrit 37.5 % (37.0-47.0); Hemoglobin 12.4 g/dL (12.2-16.2); Lymphocytes # 0.6 K/mm3 (0.7-4.5); Lymphocytes % 8.2 K/mm3 (10-50); Mean Corpuscular Hemoglobin 28.5 pg (27.0-31.2); Mean Corpuscular Volume 86.2 fl (81-99); Mean Platelet Volume 8.3 fl (7.4-10.4); Monocytes # 0.2 K/mm3 (0.1-1.0); Monocytes % 3.2 % (1.7-9.3); Neutrophils # 6.1 K/mm3 (1.8-7.8); Neutrophils % 84.3 % (37.0-80.0); Platelet Count 301 K/mm3 (142-424); Red Blood Count 4.35 M/mm3 (4.20-5.40); Red Cell Distribution Width 15.6 % (11.5-17.5); White Blood Count 7.2 K/mm3 (4.8-10.8)
[2017-06-29 08:58] LABS: Appearance,Urine CLEAR (Clear); Bilirubin,Urine Negative (Negative); Blood, Urine TRACE-I (Negative); Color,Urine YELLOW (Yellow); Glucose,Urine (UA) Negative (Negative); Ketones,Urine Negative (Negative); Leukocyte Esterase,Urine 1+ (Negative); Nitrate,Urine Negative (Negative); PH,Urine 6.5 (5.0-8.5); Protein,Urine TRACE (Negative); Urobilinogen,Urine 0.2 EU/dl (0.2)
[2017-06-29 09:09] LABS: Bacteria,Urine 1+ /lpf; RBC,Urine Occasional #/hpf (0-3)
[2017-06-29 09:10] LABS: Alanine Aminotransferase 21 U/L (12-78); Albumin Level 3.1 gm/dL (3.4-5.0); Albumin/Globulin Ratio 0.8 (1.1-1.8); Alkaline Phosphatase 223 U/L (46-116); Anion Gap 14.2 mEq/L (5-15); Aspartate Amino Transferase 33 U/L (15-37); Bilirubin,Total 0.2 mg/dL (0.2-1.0); Blood Urea Nitrogen 16 mg/dL (7-18); Carbon Dioxide 25 mmol/L (21.0-32.0); Chloride 101 mmol/L (98-107); Creatinine Clearance Estimated 45 mL/min (0-300); Creatinine,Serum 0.79 mg/dL (0.55-1.02); Estimated Glomerular Filt Rate 73 ml/min (>60); GFR (African American) 88 ML/MIN (>60); Glucose 182 mg/dL (74-106); Potassium 3.2 mmoL/L (3.5-5.1); Sodium 137 mmol/L (136-145); Total Protein,Serum 7.1 gm/dL (6.4-8.2)
[2017-06-29 09:58] VITALS: BP 154/78; PULSE 58; RESP 18; TEMP 36.4; O2SAT 98
[2017-06-29 10:28] VITALS: BP 149/73; PULSE 59; RESP 18; O2SAT 97
[2017-06-29 10:58] VITALS: BP 151/75; PULSE 60; RESP 18; O2SAT 97
[2017-06-29 11:28] VITALS: BP 160/75; PULSE 59; RESP 18; O2SAT 97
[2017-06-29 11:58] VITALS: BP 156/74; PULSE 55; RESP 18; O2SAT 96
[2017-06-29 12:20] VITALS: BP 149/76; PULSE 56; RESP 18; O2SAT 97
== END 2017-06-29 12:20 | disposition home or self-care (01) ==
LOC: INF 08:35
PROVIDERS: Family Provider Family Medicine; PCP Family Medicine; Visit Provider Internal Medicine
DX: C20 Malignant neoplasm of rectum (principal); C78.7 Secondary malignant neoplasm of liver and intrahepatic bile duct; C78.00 Secondary malignant neoplasm of unspecified lung; M54.40 Lumbago with sciatica, unspecified side
CPT/HCPCS: 80053; 81001; 85025; 87086; 96413; 96415; 96417; J1642; J9035; J9206; Q0166

== ENCOUNTER → 2017-07-11 07:35 | Outpatient (CLI) | payer OTHER, MEDICARE, SELFPAY ==
[2017-07-11 07:58] LABS: Blood Urea Nitrogen 13 mg/dL (7-18); Creatinine,Serum 0.85 mg/dL (0.55-1.02); Estimated Glomerular Filt Rate 67 ml/min (>60); GFR (African American) 81 ML/MIN (>60)
--- NOTE | 2017-07-11 08:43 | MR_ITS ---
MR lumbar spine wo con HISTORY: ITS.REASON: NONDISPLACED L1 FX, LUMBAR PAIN, METASTATIC RECTAL CANCER ORDERING PHYSICIAN: Racheal Berumen PATIENT AGE: 66 years Comparison: 06/28/2017 TECHNIQUE: Standard multiplanar multiecho sequences are performed without contrast. 3-D MIP and myelographic images are also rendered and reviewed FINDINGS: There is normal alignment. Spinal cord is at the L1 level. The radiograph suggested a transverse process fracture of L1. The L1 transverse process is not well demonstrated by MRI. Mild degenerative disc disease T12-L1 with grade 2 endplate changes. L1-L2: Minimal disc desiccation. L2-L3: Unremarkable. L3-L4: Mild facet and ligamentum flavum hypertrophy with mild bilateral lateral recess narrowing. L4 L5: Mild facet and ligamentum hypertrophy. L5-S1: Minimal bulging disc with mild facet and ligamentum hypertrophy. Minimal bilateral foraminal narrowing Decreased T1 and increased T2 signal involves the lateral aspect of the sacrum on both right and left aspect at the SI joint. IMPRESSION: 1. No disc herniation or canal stenosis. 2. Bone marrow edema involves the lateral sacrum both right and left aspect. This is of uncertain etiology and could be related to sacroiliitis. Metastatic disease is felt to be less likely due to the symmetry. Posttraumatic changes are also consideration. 3. No convincing evidence of metastatic disease
== END ==
PROVIDERS: Family Provider Family Medicine; PCP Family Medicine; Visit Provider Nurse Practitioner
DX: M48.56XA Collapsed vertebra, not elsewhere classified, lumbar region, initial encounter for fracture (principal); M54.5 Low back pain; C20 Malignant neoplasm of rectum
CPT/HCPCS: 36415; 72148; 76376; 82565; 84520

== ENCOUNTER 2017-07-11 08:05 | Outpatient (CLI) | payer OTHER, MEDICARE, SELFPAY ==
[2017-07-11] VITALS (12 sets, daily range): BP systolic 132–160; BP diastolic 60–77; PULSE 47–52; RESP 18; TEMP 36.8; O2SAT 96; BMI 20.8
[2017-07-11 08:38] LABS: Appearance,Urine CLEAR (Clear); Bilirubin,Urine Negative (Negative); Blood, Urine Negative (Negative); Color,Urine YELLOW (Yellow); Glucose,Urine (UA) Negative (Negative); Ketones,Urine Negative (Negative); Leukocyte Esterase,Urine TRACE (Negative); Microscopic, Urine URINE MICROSCOPIC (MICROSCOPIC); Nitrate,Urine Negative (Negative); Protein,Urine Negative (Negative); Urobilinogen,Urine 0.2 EU/dl (0.2)
[2017-07-11 08:42] LABS: Basophils # 0.1 K/mm3 (0-0.2); Basophils % 1.1 % (0.1-2.0); Eosinophils # 0.4 K/mm3 (0.0-0.4); Eosinophils % 7.1 % (0.1-12.0); Hemoglobin 12.9 g/dL (12.2-16.2); Lymphocytes # 0.6 K/mm3 (0.7-4.5); Lymphocytes % 10.8 K/mm3 (10-50); Mean Corpuscular HGB Conc 31.4 g/dL (31.8-35.4); Mean Corpuscular Hemoglobin 27.2 pg (27.0-31.2); Mean Corpuscular Volume 86.7 fl (81-99); Mean Platelet Volume 7.6 fl (7.4-10.4); Monocytes # 0.4 K/mm3 (0.1-1.0); Monocytes % 6.2 % (1.7-9.3); Neutrophils # 4.4 K/mm3 (1.8-7.8); Neutrophils % 74.9 % (37.0-80.0); Platelet Count 369 K/mm3 (142-424); Red Blood Count 4.73 M/mm3 (4.20-5.40); Red Cell Distribution Width 15.9 % (11.5-17.5); White Blood Count 5.9 K/mm3 (4.8-10.8)
[2017-07-11 09:06] LABS: Alanine Aminotransferase 23 U/L (12-78); Albumin Level 3.2 gm/dL (3.4-5.0); Albumin/Globulin Ratio 0.8 (1.1-1.8); Alkaline Phosphatase 260 U/L (46-116); Anion Gap 14.2 mEq/L (5-15); Aspartate Amino Transferase 29 U/L (15-37); Bilirubin,Total 0.2 mg/dL (0.2-1.0); Blood Urea Nitrogen 11 mg/dL (7-18); Calcium 9.3 mg/dL (8.5-10.1); Carbon Dioxide 24 mmol/L (21.0-32.0); Chloride 101 mmol/L (98-107); Creatinine Clearance Estimated 45 mL/min (0-300); Creatinine,Serum 0.81 mg/dL (0.55-1.02); Estimated Glomerular Filt Rate 71 ml/min (>60); GFR (African American) 86 ML/MIN (>60); Glucose 102 mg/dL (74-106); Potassium 3.2 mmoL/L (3.5-5.1); Sodium 136 mmol/L (136-145); Total Protein,Serum 7.2 gm/dL (6.4-8.2)
[2017-07-11 09:09] LABS: Bacteria,Urine Trace /lpf
[2017-07-11 09:10] LABS: Transitional Epi Cells,Urine OCC #/lpf (0-3)
== END 2017-07-11 13:40 | disposition home or self-care (01) ==
LOC: INF 08:13
PROVIDERS: Family Provider Family Medicine; PCP Family Medicine; Visit Provider Internal Medicine
DX: C20 Malignant neoplasm of rectum (principal); C78.7 Secondary malignant neoplasm of liver and intrahepatic bile duct; C78.00 Secondary malignant neoplasm of unspecified lung; Z51.11 Encounter for antineoplastic chemotherapy
CPT/HCPCS: 80053; 81001; 85025; 96413; 96415; 96417; J1642; J9035; J9206; Q0166

== ENCOUNTER 2017-07-26 10:11 | Outpatient (CLI) | payer OTHER, MEDICARE, SELFPAY ==
[2017-07-26] VITALS (13 sets, daily range): BP systolic 145–173; BP diastolic 47–104; PULSE 50–58; RESP 16–18; TEMP 36.5; BMI 20.8
[2017-07-26 10:30] LABS: Microscopic, Urine URINE MICROSCOPIC (MICROSCOPIC)
[2017-07-26 10:33] LABS: Appearance,Urine SL CLOUDY (Clear); Bilirubin,Urine Negative (Negative); Blood, Urine TRACE-I (Negative); Color,Urine YELLOW (Yellow); Glucose,Urine (UA) Negative (Negative); Ketones,Urine Negative (Negative); Leukocyte Esterase,Urine TRACE (Negative); Nitrate,Urine Negative (Negative); Protein,Urine 1+ (Negative); Specific Gravity, Urine >= 1.030 (1.005-1.030); Urobilinogen,Urine 0.2 EU/dl (0.2)
[2017-07-26 10:34] LABS: Basophils # 0.1 K/mm3 (0-0.2); Basophils % 0.7 % (0.1-2.0); Eosinophils # 0.2 K/mm3 (0.0-0.4); Eosinophils % 3.5 % (0.1-12.0); Hematocrit 43.9 % (37.0-47.0); Hemoglobin 13.6 g/dL (12.2-16.2); Lymphocytes # 0.7 K/mm3 (0.7-4.5); Lymphocytes % 10.1 K/mm3 (10-50); Mean Corpuscular Hemoglobin 26.8 pg (27.0-31.2); Mean Corpuscular Volume 86.5 fl (81-99); Mean Platelet Volume 7.3 fl (7.4-10.4); Monocytes # 0.5 K/mm3 (0.1-1.0); Monocytes % 6.6 % (1.7-9.3); Neutrophils # 5.4 K/mm3 (1.8-7.8); Platelet Count 404 K/mm3 (142-424); Red Blood Count 5.07 M/mm3 (4.20-5.40); Red Cell Distribution Width 16.5 % (11.5-17.5); White Blood Count 6.9 K/mm3 (4.8-10.8)
[2017-07-26 10:39] LABS: Bacteria,Urine 1+ /lpf; Mucus,Urine 1+ /lpf; RBC,Urine Occasional #/hpf (0-3); WBC,Urine Occasional #/hpf (0-3)
[2017-07-26 10:40] LABS: Hyaline Casts,Urine Occasional #/lpf (0)
[2017-07-26 10:44] LABS: Alanine Aminotransferase 26 U/L (12-78); Albumin Level 3.3 gm/dL (3.4-5.0); Albumin/Globulin Ratio 0.8 (1.1-1.8); Alkaline Phosphatase 245 U/L (46-116); Anion Gap 13.9 mEq/L (5-15); Aspartate Amino Transferase 29 U/L (15-37); Bilirubin,Total 0.2 mg/dL (0.2-1.0); Blood Urea Nitrogen 14 mg/dL (7-18); Calcium 9.6 mg/dL (8.5-10.1); Carbon Dioxide 25 mmol/L (21.0-32.0); Chloride 101 mmol/L (98-107); Creatinine Clearance Estimated 45 mL/min (0-300); Creatinine,Serum 0.92 mg/dL (0.55-1.02); Estimated Glomerular Filt Rate 61 ml/min (>60); GFR (African American) 74 ML/MIN (>60); Globulin 4.2 gm/dl (1.3-3.2); Glucose 122 mg/dL (74-106); Potassium 3.9 mmoL/L (3.5-5.1); Sodium 136 mmol/L (136-145); Total Protein,Serum 7.5 gm/dL (6.4-8.2)
== END 2017-07-26 16:50 | disposition home or self-care (01) ==
LOC: INF 10:11
PROVIDERS: Family Provider Family Medicine; PCP Family Medicine; Visit Provider Internal Medicine
DX: C20 Malignant neoplasm of rectum (principal)
CPT/HCPCS: 80053; 81001; 85025; 96413; 96415; 96417; J9035; J9206; Q0166

== ENCOUNTER → 2017-07-31 13:08 | Outpatient (POV) | payer OTHER, MEDICARE, SELFPAY ==
[2017-07-31 13:15] VITALS: BP 156/73; PULSE 48; RESP 18; TEMP 36.4; O2SAT 94
--- NOTE | 2017-07-31 15:37 | HMH.PMCON ---
Assessment and Plan (1) Lumbar transverse process fracture Current visit: Yes Status: Chronic Category: Medical Code(s): S32.009A - Unspecified fracture of unspecified lumbar vertebra, initial encounter for closed fracture - Assessment and plan all Dx Assessment and Plan for all problems:: We will provide a lumbar brace for this patient in follow-up with her in 1 week to determine if this is helped with her symptoms at all. Patient states she is having no symptomology in regards to her cancer pain however we did briefly discuss potential intrathecal therapy if that is necessary in the future. Patient and I discussed potential epidural steroid injections to help alleviate some of the pain from her fracture if the bracing does not work. We will also potentially order a DEXA scan to help us determine bone density. This note was dictated using voice recognition software and may contain errors or omissions HPI - Data of Consult Consult date: 07/31/17 Requesting Physician: Liz Fitzgerald APRN Primary Care Provider: Awais Schmidt MD Family Provider: Awais Schmidt MD - Consult Narrative Reason for consult: Back pain History of present illness: Ms. Delarosa is a 66 year old female who presents for consultation in regards to back pain. Patient has a recent diagnosis of rectal cancer. Patient states that she has no pain in relation to her cancer. Patient did have sudden back pain beginning several weeks ago. Upon review of her MRI she has a fracture of the transverse process of L1. Patient states that this is causing most of her pain. Patient has not had any kind of bracing. We will provide her with a brace to see if this helps with some of her pain relief. Patient may need epidural steroid injections in the future for pain relief. Patient rates her pain an 8 out of 10 all in her back. Patient states that it is achy and constant in nature. Patient states that getting up out of bed and our chair is making it worse while resting makes it a little bit better. CC: Liz Fitzgerald APRN [facility] History I have reviewed the patient's past medical history: Yes Medical History: Reports:: Cancer, Chronic Obstructive Pulmonary Disease (COPD), Diabetes Mellitus Type 1, Hypertension, Lung Disease, MRSA Denies:: Anxiety, Depression, Diabetes Mellitus Type 2 Other Medical History: Reports: Anemia, Arthritis, Chemotherapy, Hypothyroidism, Liver Disease, Radiation Therapy, Thyroid Disease, Other Other Surgeries: Yes: Appendectomy, Cancer Surgery, Colonoscopy, Colon Resection, Colostomy, Hysterectomy-Total, Tubal Ligation, Other Amputation: No Fractures: No - *Social History Educational Level: Attended High School Smoking Status: Current every day smoker Tobacco Type: cigarettes # Packs/Day (cigarettes): 1 Alcohol Intake: never Alcohol Intake Frequency:: holidays/special occasions only Substance Use Type: denies use Occupational Status: employed Housing: house Household Members: children, family - Psychiatric History Expresses thoughts of harming self/others: None Suicide Plan Description: No Plan Pschychiatric History:: Denies:: Anxiety, Attention Deficit Disorder, Bipolar Disorder, Depression, Eating Disorder, Post Traumatic Stress Disorder, Suicide Attempt, Psychiatric Treatment, Schizophrenia *Family Hx:: Cancer, Heart Attack, Hyperlipidemia, Hypertension, Stroke, Thyroid Disorder, Tuberculosis [employer] history: Non-contributory Review of Systems - Review of Systems ROS General: no recent weight change, no fever, no sleep disturbances Respiratory: no cough, no shortness of air, no recurring pulmonary infections Cardiovascular/Peripheral Vascular: No chest pain, No palpitations, no edema, no shortness of breath. Gastrointestinal: Colostomy in place Genitourinary: no incontinence Musculoskeletal: Back pain Psychiatric: normal mood/ affect Neurological: [denies weakness in extremities], [denies balance issu
--- NOTE | 2017-07-31 15:40 | P.CONS_ITS ---
Assessment and Plan (1) Lumbar transverse process fracture Current visit: Yes Status: Chronic Category: Medical Code(s): S32.009A - Unspecified fracture of unspecified lumbar vertebra, initial encounter for closed fracture - Assessment and plan all Dx Assessment and Plan for all problems:: We will provide a lumbar brace for this patient in follow-up with her in 1 week to determine if this is helped with her symptoms at all. Patient states she is having no symptomology in regards to her cancer pain however we did briefly discuss potential intrathecal therapy if that is necessary in the future. Patient and I discussed potential epidural steroid injections to help alleviate some of the pain from her fracture if the bracing does not work. We will also potentially order a DEXA scan to help us determine bone density. This note was dictated using voice recognition software and may contain errors or omissions HPI - Data of Consult Consult date: 07/31/17 Requesting Physician: Liz Fitzgerald APRN Primary Care Provider: Awais Schmidt MD Family Provider: Awais Schmidt MD - Consult Narrative Reason for consult: Back pain History of present illness: Ms. Delarosa is a 66 year old female who presents for consultation in regards to back pain. Patient has a recent diagnosis of rectal cancer. Patient states that she has no pain in relation to her cancer. Patient did have sudden back pain beginning several weeks ago. Upon review of her MRI she has a fracture of the transverse process of L1. Patient states that this is causing most of her pain. Patient has not had any kind of bracing. We will provide her with a brace to see if this helps with some of her pain relief. Patient may need epidural steroid injections in the future for pain relief. Patient rates her pain an 8 out of 10 all in her back. Patient states that it is achy and constant in nature. Patient states that getting up out of bed and our chair is making it worse while resting makes it a little bit better. CC: Liz Fitzgerald APRN [facility] History I have reviewed the patient's past medical history: Yes Medical History: Reports:: Cancer, Chronic Obstructive Pulmonary Disease (COPD) , Diabetes Mellitus Type 1, Hypertension, Lung Disease, MRSA Denies:: Anxiety, Depression, Diabetes Mellitus Type 2 Other Medical History: Reports: Anemia, Arthritis, Chemotherapy, Hypothyroidism , Liver Disease, Radiation Therapy, Thyroid Disease, Other Other Surgeries: Yes: Appendectomy, Cancer Surgery, Colonoscopy, Colon Resection , Colostomy, Hysterectomy-Total, Tubal Ligation, Other Amputation: No Fractures: No - *Social History Educational Level: Attended High School Smoking Status: Current every day smoker Tobacco Type: cigarettes # Packs/Day (cigarettes): 1 Alcohol Intake: never Alcohol Intake Frequency:: holidays/special occasions only Substance Use Type: denies use Occupational Status: employed Housing: house Household Members: children, family - Psychiatric History Expresses thoughts of harming self/others: None Suicide Plan Description: No Plan Pschychiatric History:: Denies:: Anxiety, Attention Deficit Disorder, Bipolar Disorder, Depression, Eating Disorder, Post Traumatic Stress Disorder, Suicide Attempt, Psychiatric Treatment, Schizophrenia *Family Hx:: Cancer, Heart Attack, Hyperlipidemia, Hypertension, Stroke, Thyroid Disorder, Tuberculosis SENIOR SYSTEMS ANALYST history: Non-contributory Review of Systems - Review of Systems ROS General: no recent weight change, no fever, no sleep disturbances Respiratory: no c
== END ==
PROVIDERS: Family Provider Family Medicine; PCP Family Medicine; Visit Provider Clinical Nurse Specialist Family Health
DX: S32.009A Unspecified fracture of unspecified lumbar vertebra, initial encounter for closed fracture (principal)
CPT/HCPCS: 99202

== ENCOUNTER → 2017-08-07 09:57 | Outpatient (POV) | payer OTHER, MEDICARE, SELFPAY ==
[2017-08-07 10:24] VITALS: BP 149/65; PULSE 74; RESP 18; O2SAT 98
--- NOTE | 2017-08-07 11:14 | HMH.PAINSOAP ---
[facility] Pain Management SOAP Note Subjective:: Patient is a pleasant 66-year-old white female who presents today for one-week follow-up after consultation in regards to her low back pain. Patient has a lumbar transverse process fracture which she rates her pain a 6 out of 10 mostly in her low back. Patient was given a brace at her last visit she states that this is helpful. Patient and I had discussed epidural injections however she is uninterested in pursuing that at this time. Of note she is under therapy for cancer. Patient states she is having no pain related to her cancer. Patient and I also discussed potential DEXA scan however at this point she states that she is uninterested. ROS General: no recent weight change, no fever, no sleep disturbances Respiratory: no cough, no shortness of air, no recurring pulmonary infections Cardiovascular/Peripheral Vascular: No chest pain, No palpitations, no edema, no shortness of breath. Gastrointestinal: Colostomy Genitourinary: no incontinence Musculoskeletal: Back pain Psychiatric: normal mood/ affect Neurological: [denies weakness in extremities], [denies balance issues] Objective:: Physical Exam General: Alert and oriented x3, no acute distress, pleasant and cooperative, [on room air] Lungs: Resps E/U, Symmetrical chest expansion, Eyes: PERRL Musculoskeletal: Flexion and extension of lumbar spine somewhat guarded secondary to pain, deep tendon reflexes normal, strength in upper and lower extremities [5/5], [abnormal gait noted] Neurological: speech clear, echometer engineer equal, no gross sensory deficits Assessment:: Lumbar transverse process fracture Plan:: We will follow-up with this patient in 3 months she is doing well with the bracing. Patient is uninterested epidurals at this time. Patient states she is having no cancer related pain. Patient and I discussed that if she has any issues prior to her next appointment that we would be happy to see her earlier. This note was dictated using voice recognition software and may contain errors or omissions
--- NOTE | 2017-08-07 11:17 | P.CONS_ITS ---
[facility] Pain Management SOAP Note Subjective:: Patient is a pleasant 66-year-old white female who presents today for one-week follow-up after consultation in regards to her low back pain. Patient has a lumbar transverse process fracture which she rates her pain a 6 out of 10 mostly in her low back. Patient was given a brace at her last visit she states that this is helpful. Patient and I had discussed epidural injections however she is uninterested in pursuing that at this time. Of note she is under therapy for cancer. Patient states she is having no pain related to her cancer. Patient and I also discussed potential DEXA scan however at this point she states that she is uninterested. ROS General: no recent weight change, no fever, no sleep disturbances Respiratory: no cough, no shortness of air, no recurring pulmonary infections Cardiovascular/Peripheral Vascular: No chest pain, No palpitations, no edema, no shortness of breath. Gastrointestinal: Colostomy Genitourinary: no incontinence Musculoskeletal: Back pain Psychiatric: normal mood/ affect Neurological: [denies weakness in extremities], [denies balance issues] Objective:: Physical Exam General: Alert and oriented x3, no acute distress, pleasant and cooperative, [ on room air] Lungs: Resps E/U, Symmetrical chest expansion, Eyes: PERRL Musculoskeletal: Flexion and extension of lumbar spine somewhat guarded secondary to pain, deep tendon reflexes normal, strength in upper and lower extremities [5/5], [abnormal gait noted] Neurological: speech clear, feeder catcher equal, no gross sensory deficits Assessment:: Lumbar transverse process fracture Plan:: We will follow-up with this patient in 3 months she is doing well with the bracing. Patient is uninterested epidurals at this time. Patient states she is having no cancer related pain. Patient and I discussed that if she has any issues prior to her next appointment that we would be happy to see her earlier. This note was dictated using voice recognition software and may contain errors or omissions
== END ==
PROVIDERS: Family Provider Family Medicine; PCP Family Medicine; Visit Provider Clinical Nurse Specialist Family Health
DX: M84.58XG Pathological fracture in neoplastic disease, other specified site, subsequent encounter for fracture with delayed healing (principal); C20 Malignant neoplasm of rectum; C79.51 Secondary malignant neoplasm of bone
CPT/HCPCS: 99212

== ENCOUNTER 2017-08-10 08:00 | Outpatient (CLI) | payer OTHER, MEDICARE, SELFPAY ==
[2017-08-10] VITALS (12 sets, daily range): BP systolic 144–177; BP diastolic 59–103; PULSE 48–56; RESP 18–20; TEMP 36.5; O2SAT 97; BMI 20.6
[2017-08-10 08:36] LABS: Microscopic, Urine URINE MICROSCOPIC (MICROSCOPIC)
[2017-08-10 08:38] LABS: Appearance,Urine SL CLOUDY (Clear); Bilirubin,Urine Negative (Negative); Blood, Urine TRACE-L (Negative); Color,Urine YELLOW (Yellow); Glucose,Urine (UA) Negative (Negative); Ketones,Urine Negative (Negative); Leukocyte Esterase,Urine 2+ (Negative); Nitrate,Urine Negative (Negative); Protein,Urine 1+ (Negative); Urobilinogen,Urine 0.2 EU/dl (0.2)
[2017-08-10 08:39] LABS: Basophils % 0.8 % (0.1-2.0); Eosinophils # 0.2 K/mm3 (0.0-0.4); Eosinophils % 4.1 % (0.1-12.0); Hematocrit 42.4 % (37.0-47.0); Hemoglobin 13.2 g/dL (12.2-16.2); Lymphocytes # 0.6 K/mm3 (0.7-4.5); Lymphocytes % 10.7 K/mm3 (10-50); Mean Corpuscular HGB Conc 31.1 g/dL (31.8-35.4); Mean Corpuscular Hemoglobin 26.6 pg (27.0-31.2); Mean Corpuscular Volume 85.6 fl (81-99); Mean Platelet Volume 7.5 fl (7.4-10.4); Monocytes # 0.4 K/mm3 (0.1-1.0); Monocytes % 7.8 % (1.7-9.3); Neutrophils # 3.9 K/mm3 (1.8-7.8); Neutrophils % 76.5 % (37.0-80.0); Platelet Count 312 K/mm3 (142-424); Red Blood Count 4.95 M/mm3 (4.20-5.40); Red Cell Distribution Width 16.7 % (11.5-17.5); White Blood Count 5.1 K/mm3 (4.8-10.8)
[2017-08-10 08:45] LABS: RBC,Urine Occasional #/hpf (0-3)
[2017-08-10 08:46] LABS: Bacteria,Urine 1+ /lpf
[2017-08-10 08:50] LABS: Alanine Aminotransferase 21 U/L (12-78); Albumin Level 3.1 gm/dL (3.4-5.0); Albumin/Globulin Ratio 0.8 (1.1-1.8); Alkaline Phosphatase 255 U/L (46-116); Anion Gap 12.1 mEq/L (5-15); Aspartate Amino Transferase 27 U/L (15-37); Bilirubin,Total 0.2 mg/dL (0.2-1.0); Blood Urea Nitrogen 9 mg/dL (7-18); Calcium 9.1 mg/dL (8.5-10.1); Carbon Dioxide 25 mmol/L (21.0-32.0); Chloride 102 mmol/L (98-107); Creatinine Clearance Estimated 44 mL/min (0-300); Creatinine,Serum 0.82 mg/dL (0.55-1.02); Estimated Glomerular Filt Rate 70 ml/min (>60); GFR (African American) 84 ML/MIN (>60); Glucose 115 mg/dL (74-106); Potassium 3.1 mmoL/L (3.5-5.1); Sodium 136 mmol/L (136-145); Total Protein,Serum 7.1 gm/dL (6.4-8.2)
--- NOTE | 2017-08-10 15:17 | PC.NURSE ---
0915: Dr. Pollock called about patient's abnormal labs, he is ok with adminstering chemotherapy as scheduled. pt denies urinary pain, urine culture pending and will be followed up.
== END 2017-08-10 13:00 | disposition home or self-care (01) ==
LOC: INF 08:14
PROVIDERS: Family Provider Family Medicine; PCP Family Medicine; Visit Provider Internal Medicine
DX: C20 Malignant neoplasm of rectum (principal)
CPT/HCPCS: 80053; 81001; 85025; 87086; 96413; 96415; 96417; J9035; J9206; Q0166

== ENCOUNTER 2017-08-15 09:04 | Outpatient (CLI) | payer OTHER, MEDICARE, SELFPAY ==
[2017-08-15 08:40] VITALS: BMI 21.3
--- NOTE | 2017-08-15 09:11 | CT_ITS ---
CT abdomen pelvis w con CLINICAL INDICATION: Metastatic rectal cancer follow-up with treatment ITS.REASON: RECTAL CA ORDERING PHYSICIAN: Ang Pollock MD PATIENT AGE: 67 years COMPARISON 04/20/2018 TECHNIQUE: Axial images obtained with sagittal and coronal reformats. All CT scans at the facility use one or more dose reduction, viz: automated exposure control; ma/kV adjustment per patient size (including targeted exams where dose is matched to indication; i.e. head); or iterative reconstruction technique. PROCEDURE: Oral Contrast: Redicat IV Contrast: 75 mL's of Isovue-370. FINDINGS: Multiple hepatic lesions are present the largest in the junction of the right and left hepatic lobes measuring 8.5 x 6.5 x 8.6 cm previously 7.7 x 5 cm x 7.9 cm. Other lesions are also present and have slightly increased in size. There is a new lesion in the lateral segment of the left hepatic lobe at 13 mm. The spleen is unremarkable. Left adrenal nodule is once again noted at 2.4 x 1.6 cm. Previously 2 x 1.4 cm. Right adrenal gland is unremarkable. The pancreas has an unremarkable appearance. No change 2 cm cyst along the lower pole the right kidney. There has been a prior left lower quadrant diverting colostomy. Postsurgical changes of the rectal region once again noted with mild thickening of the perineal tissues not significant change. No bony destructive lesions evident. IMPRESSION: 1. Enlarging liver lesions with new liver lesion negative consistent with progression of hepatic metastasis. 2. Left adrenal nodule slightly larger and may be due to metastatic disease. 3. No change in the postsurgical changes of the rectum and perineal area
--- NOTE | 2017-08-15 09:23 | CT_ITS ---
CT chest w con HISTORY: Follow-up rectal cancer with pulmonary nodules and liver lesions ITS.REASON: RECTAL CA PHYSICIAN: Ang Pollock MD PATIENT AGE: 67 years COMPARISON: 04/20/2017 TECHNIQUE: Axial images obtained following the administration of 75 mL of Isovue 370 . Sagittal, and coronal reformatted images are also generated and reviewed. All CT scans at the facility use one or more dose reduction, viz: automated exposure control; ma/kV adjustment per patient size (including targeted exams where dose is matched to indication; i.e. head); or iterative reconstruction technique. FINDINGS: No mediastinal or hilar mass or adenopathy. No evidence of aortic aneurysm or central pulmonary embolus. Mediport catheter is present from the left subclavian approach. There is a 5 mm pulmonary nodule in the right lower lobe posterior to the descending branch of the right pulmonary artery. This is not felt to be significantly changed. Previously noted 4 mm nodule in the right middle lobe is not identified on today's exam. No new nodules are evident. No effusions or infiltrates. Previously noted 8 mm nodular density in the right lower lobe medially now has more of a cystic dominant measuring approximately 9 x 5 mm. This is of questionable clinical significance Calcified granulomas present in the right lung base laterally. A subpleural opacity is present in the right upper lobe posterior medially at 4.5 mm unchanged. No central obstructing lesions. No acute bony anomalies. IMPRESSION: 1. Stable 5 mm nodule in the right lower lobe. 2. Previously described 4 mm nodule in the right middle lobe is not identified on today's exam. Previously described cavitating lesion in the right lower lobe medially shows a greater cystic component and overall unchanged in size. 3. No new nodules evident
--- NOTE | 2017-08-15 09:56 | HMH.ITSHM ---
LISINOPRIL 20 MG LEVOTHYROXIN 75 MG AMLODIPINE 10 MG METOPROLOL 50 MG ONDANSETRON 8 MG EVERY 8 HR OMEPRAZOLE 20 MG TRAZODONE 50 MG
[2017-08-15 15:11] LABS: Free T4 (Free Thyroxine) 1.63 ng/dl (0.76-1.46); Thyroid Stimulating Hormone 16.31 uIU/ml (0.358-3.740)
== END 2017-08-15 09:45 | disposition home or self-care (01) ==
LOC: RAD 09:05
PROVIDERS: Family Provider Family Medicine; PCP Family Medicine; Visit Provider Internal Medicine
DX: C20 Malignant neoplasm of rectum (principal); Z03.89 Encounter for observation for other suspected diseases and conditions ruled out; E03.9 Hypothyroidism, unspecified
CPT/HCPCS: 71260; 74177; 84439; 84443; J1642; Q9967

== ENCOUNTER 2017-10-04 11:55 | Outpatient (CLI) | payer OTHER, MEDICARE, SELFPAY ==
[2017-10-04 12:50] VITALS: BP 166/72; PULSE 59; RESP 18; TEMP 36.6; O2SAT 96
[2017-10-04 13:20] VITALS: BP 159/74; PULSE 60; RESP 18; O2SAT 96
[2017-10-04 13:50] VITALS: BP 161/72; PULSE 58; RESP 18; O2SAT 97
[2017-10-04 14:20] VITALS: BP 167/71; PULSE 59; RESP 18; O2SAT 96
[2017-10-04 15:00] VITALS: BP 158/72; PULSE 60; RESP 18; O2SAT 97
== END 2017-10-04 15:00 | disposition home or self-care (01) ==
LOC: INF 12:22
PROVIDERS: Family Provider Family Medicine; PCP Family Medicine; Visit Provider Internal Medicine
DX: C18.9 Malignant neoplasm of colon, unspecified (principal); Z45.2 Encounter for adjustment and management of vascular access device
CPT/HCPCS: 96360; 96361; 96374; J2405

== ENCOUNTER 2017-10-06 11:25 | Outpatient (CLI) | payer OTHER, MEDICARE, SELFPAY ==
[2017-10-06 11:45] VITALS: BP 164/80; PULSE 52; RESP 18; TEMP 36.5; O2SAT 95
[2017-10-06 12:15] VITALS: BP 149/65; PULSE 53; RESP 16
[2017-10-06 12:45] VITALS: BP 150/55; PULSE 57; RESP 16
[2017-10-06 13:15] VITALS: BP 149/57; PULSE 56; RESP 16
[2017-10-06 13:45] VITALS: BP 162/82; PULSE 64; RESP 16
== END 2017-10-06 13:50 | disposition home or self-care (01) ==
LOC: INF 11:32
PROVIDERS: Family Provider Family Medicine; PCP Family Medicine; Visit Provider Internal Medicine
DX: C20 Malignant neoplasm of rectum (principal)
CPT/HCPCS: 96360; 96361; J1642

== ENCOUNTER 2017-10-11 11:30 | Outpatient (CLI) | payer OTHER, MEDICARE, SELFPAY ==
[2017-10-11 11:50] VITALS: BP 145/61; PULSE 55; RESP 18; TEMP 36.6; O2SAT 95
[2017-10-11 12:20] VITALS: BP 135/55; PULSE 49; RESP 18
[2017-10-11 12:50] VITALS: BP 142/65; PULSE 54; RESP 16
[2017-10-11 13:20] VITALS: BP 145/72; PULSE 50; RESP 16
[2017-10-11 13:50] VITALS: BP 100/56; PULSE 55; RESP 16
== END 2017-10-11 14:00 | disposition home or self-care (01) ==
LOC: INF 11:37
PROVIDERS: PCP Family Medicine; Visit Provider Internal Medicine
DX: C20 Malignant neoplasm of rectum (principal)
CPT/HCPCS: 96360; 96361; J1642

== ENCOUNTER 2017-10-13 12:15 | Outpatient (CLI) | payer OTHER, MEDICARE, SELFPAY ==
[2017-10-13 12:30] VITALS: BP 138/59; PULSE 56; RESP 20; TEMP 36.9; O2SAT 95
[2017-10-13 13:30] VITALS: BP 140/62; PULSE 66; RESP 20; TEMP 36.9; O2SAT 95
[2017-10-13 14:30] VITALS: BP 144/70; PULSE 68; RESP 20; TEMP 36.9; O2SAT 96
== END 2017-10-13 14:45 | disposition home or self-care (01) ==
LOC: INF 12:32
PROVIDERS: Family Provider Family Medicine; PCP Family Medicine; Visit Provider Internal Medicine
DX: C20 Malignant neoplasm of rectum (principal)
CPT/HCPCS: 96360; 96361; J1642

== ENCOUNTER 2017-11-29 11:00 | Outpatient (CLI) | payer OTHER, MEDICARE, SELFPAY ==
[2017-11-29 10:45] VITALS: BP 126/71; PULSE 74; RESP 20; TEMP 36.6; O2SAT 98
[2017-11-29 11:15] VITALS: BP 124/70; PULSE 76; RESP 20; O2SAT 97
[2017-11-29 11:45] VITALS: BP 121/67; PULSE 71; RESP 20; O2SAT 98
== END 2017-11-29 11:55 | disposition home or self-care (01) ==
LOC: INF 11:12
PROVIDERS: Visit Provider Internal Medicine Medical Oncology
DX: C18.9 Malignant neoplasm of colon, unspecified (principal)
CPT/HCPCS: 96360; 96374; 96375; J1642; J2405